=== PATIENT | female | born 1930 | race Caucasian/White ===

== ENCOUNTER 2017-01-01 07:05 | Day surgery (SDC) | payer OTHER ==
[2017-01-01] MEDS ORDERED: SODIUM CHLORIDE 250 ML IV ONE (08:00)
[2017-01-01] MEDS ORDERED: DIPHENHYDRAMINE 25 MG in SODIUM CHLORIDE 50 ML IVPB ONE (08:00)
[2017-01-01] MEDS ORDERED: ACETAMINOPHEN 325 MG TABLET (FP) PO ONE (08:00)
[2017-01-01] MEDS ORDERED: RITUXIMAB IVPB ONE (09:00)
[2017-01-01] MEDS ORDERED: SODIUM CHLORIDE IVPB ONE (09:00)
[2017-01-01 09:37] LABS: MCH 29.9 pg (25.7-33.7); MEAN PLT VOLUME 9.3 fl (7.5-11.1); RDW 14.5 % (11.6-15.6); WHITE BLOOD COUNT 9.5 K/mm3 (4.0-10.0)
[2017-01-01 09:38] VITALS: TEMP 98.1
[2017-01-01 13:07] LABS: PLATELET COMMENT2 FEW LARGE PLTS; PLATELET ESTIMATE ADEQUATE (NORMAL)
[2017-01-01] MEDS ORDERED: PORTA CATH FLUSH 10 ML IVPUSH ONE (19:14)
[2017-01-01 19:15] VITALS: BP 111/56; PULSE 74
[2017-01-02 10:55] LABS: PLATELET COUNT 145 K/MM3 (134-434)
== END 2017-01-01 16:15 | disposition home or self-care (01) ==
LOC: JONCCHEMO 07:05 → J7W 10:38 → JONCCHEMO 16:15
PROVIDERS: ATTEND Internal Medicine Hematology & Oncology
PROC: 3E04305 Introduction of Other Antineoplastic into Central Vein, Percutaneous Approach (ICD-10-PCS; principal; 2017-01-01)
PROC: 3E043GC Introduction of Other Therapeutic Substance into Central Vein, Percutaneous Approach (ICD-10-PCS; 2017-01-01)
PROC: 3E0437Z Introduction of Electrolytic and Water Balance Substance into Central Vein, Percutaneous Approach (ICD-10-PCS; 2017-01-01)
DX: Z51.11 Encounter for antineoplastic chemotherapy (principal); C91.10 Chronic lymphocytic leukemia of B-cell type not having achieved remission
CPT/HCPCS: 96375; 96413; J1200; J7030; J9310; 36415; 85025; 96360; 96361; 96367; 96415

== ENCOUNTER 2017-02-26 07:45 | Day surgery (SDC) | payer OTHER ==
[2017-02-26] MEDS ORDERED: ACETAMINOPHEN 325 MG TABLET (FP) PO ONE (10:00)
[2017-02-26] MEDS ORDERED: DIPHENHYDRAMINE 25 MG in SODIUM CHLORIDE 50 ML IVPB ONE (10:00)
[2017-02-26] MEDS ORDERED: SODIUM CHLORIDE 250 ML IV ONE (10:00)
[2017-02-26] MEDS ORDERED: SODIUM CHLORIDE IVPB ONE (10:30)
[2017-02-26] MEDS ORDERED: RITUXIMAB IVPB ONE (10:30)
[2017-02-26 10:31] LABS: MCH 29.4 pg (25.7-33.7); MCHC 33.3 g/dl (32.0-36.0); MEAN CELL VOLUME 88.5 fl (80-96); MEAN PLT VOLUME 9.6 fl (7.5-11.1); RDW 14.2 % (11.6-15.6); WHITE BLOOD COUNT 6.2 K/mm3 (4.0-10.0)
[2017-02-26 13:46] LABS: ALBUMIN 4.1 g/dl (3.4-5.0); ALK PHOS 77 U/L (45-117); ANION GAP 11 (8-16); BILIRUBIN,TOTAL 0.4 mg/dL (0.2-1.0); CALCIUM 9.5 mg/dL (8.5-10.1); CO2 24 mmol/L (21-32); COCKROFT - GAULT 60.35; CREATININE 0.7 mg/dL (0.55-1.02); GLUCOSE,RANDOM 76 mg/dL (74-106); MAGNESIUM 2.4 mg/dL (1.8-2.4); SGOT/AST 29 U/L (15-37); SGPT/ALT 31 U/L (12-78); TOT PROT 6.3 g/dl (6.4-8.2)
[2017-02-26] MEDS ORDERED: PORTA CATH FLUSH 10 ML IVPUSH ONE (13:47)
[2017-02-26 14:15] LABS: PLATELET COUNT 158 K/MM3 (134-434); PLATELET ESTIMATE ADEQUATE (NORMAL)
[2017-02-26 16:29] VITALS: BP 117/61; PULSE 69; TEMP 97.7
[2017-02-26 17:39] LABS: URIC ACID 2.4 mg/dL (2.6-7.2)
== END 2017-02-26 18:32 | disposition home or self-care (01) ==
LOC: JONCCHEMO 07:45 → J7W 11:44 → JONCCHEMO 18:32
PROVIDERS: ATTEND Internal Medicine Hematology & Oncology
DX: Z51.11 Encounter for antineoplastic chemotherapy (principal); C91.10 Chronic lymphocytic leukemia of B-cell type not having achieved remission
CPT/HCPCS: 36415; 80053; 83735; 84550; 85025; 96367; 96413; 96415; J9310

== ENCOUNTER 2017-04-23 07:31 | Day surgery (SDC) | payer OTHER ==
[2017-04-23] MEDS ORDERED: SODIUM CHLORIDE 250 ML IV ONE (08:00)
[2017-04-23] MEDS ORDERED: DIPHENHYDRAMINE 25 MG in SODIUM CHLORIDE 50 ML IVPB ONE (08:30)
[2017-04-23] MEDS ORDERED: ACETAMINOPHEN 325 MG TABLET (FP) PO ONE (08:30)
[2017-04-23] MEDS ORDERED: SODIUM CHLORIDE IVPB ONE ×2 (09:00)
[2017-04-23] MEDS ORDERED: RITUXIMAB IVPB ONE ×2 (09:00)
[2017-04-23 09:34] LABS: MCH 29.2 pg (25.7-33.7); MCHC 32.9 g/dl (32.0-36.0); MEAN CELL VOLUME 88.7 fl (80-96); MEAN PLT VOLUME 9.5 fl (7.5-11.1); PLATELET COUNT 165 K/MM3 (134-434); WHITE BLOOD COUNT 5.6 K/mm3 (4.0-10.0)
[2017-04-23 09:53] LABS: ALBUMIN 3.9 g/dl (3.4-5.0); ANION GAP 10 (8-16); CALCIUM 9.4 mg/dL (8.5-10.1); CO2 22 mmol/L (21-32); GLUCOSE,RANDOM 105 mg/dL (74-106)
[2017-04-23 09:56] LABS: ALK PHOS 81 U/L (45-117); BILIRUBIN,TOTAL 0.3 mg/dL (0.2-1.0); CREATININE 0.8 mg/dL (0.55-1.02); SGOT/AST 34 U/L (15-37); SGPT/ALT 32 U/L (12-78); TOT PROT 6.4 g/dl (6.4-8.2)
[2017-04-23 09:57] LABS: BILIRUBIN,DIRECT < 0.1 mg/dL (0.0-0.2)
[2017-04-23 10:18] LABS: PLATELET ESTIMATE ADEQUATE (NORMAL)
[2017-04-23 17:06] VITALS: BP 136/53; PULSE 64; TEMP 97.4
== END 2017-04-23 15:30 | disposition home or self-care (01) ==
LOC: JONCCHEMO 07:31 → J7W 10:26 → JONCCHEMO 15:30
PROVIDERS: ATTEND Internal Medicine Hematology & Oncology
DX: Z51.11 Encounter for antineoplastic chemotherapy (principal); C91.10 Chronic lymphocytic leukemia of B-cell type not having achieved remission
CPT/HCPCS: 36415; 80053; 80076; 85025; 96361; 96367; 96375; 96413; 96415; J9310

== ENCOUNTER 2017-06-18 07:36 | Day surgery (SDC) | payer OTHER ==
[2017-06-18] MEDS ORDERED: ACETAMINOPHEN 325 MG TABLET (FP) PO ONE (08:30)
[2017-06-18] MEDS ORDERED: DIPHENHYDRAMINE 25 MG in SODIUM CHLORIDE 50 ML IVPB ONE (08:30)
[2017-06-18] MEDS ORDERED: RITUXIMAB IVPB ONE (09:00)
[2017-06-18] MEDS ORDERED: SODIUM CHLORIDE IVPB ONE (09:00)
[2017-06-18 10:07] LABS: MCH 29.4 pg (25.7-33.7); MEAN CELL VOLUME 89.2 fl (80-96); MEAN PLT VOLUME 9.5 fl (7.5-11.1); PLATELET COUNT 205 K/MM3 (134-434); RDW 14.4 % (11.6-15.6); WHITE BLOOD COUNT 5.8 K/mm3 (4.0-10.0)
[2017-06-18 10:39] LABS: ALBUMIN 4.2 g/dl (3.4-5.0); ANION GAP 6 (8-16); BILIRUBIN,DIRECT < 0.1 mg/dL (0.0-0.2); BILIRUBIN,TOTAL 0.4 mg/dL (0.2-1.0); CALCIUM 10.1 mg/dL (8.5-10.1); CO2 29 mmol/L (21-32); CREATININE 0.7 mg/dL (0.55-1.02); GLUCOSE,RANDOM 75 mg/dL (74-106); MAGNESIUM 2.3 mg/dL (1.8-2.4); SGOT/AST 19 U/L (15-37); SGPT/ALT 23 U/L (12-78); TOT PROT 6.6 g/dl (6.4-8.2)
[2017-06-18 10:41] LABS: ALK PHOS 87 U/L (45-117)
[2017-06-18 11:14] LABS: LDH 286 U/L (84-246)
[2017-06-18 11:18] LABS: PHOSPHOROUS 3.5 mg/dL (2.5-4.9); URIC ACID 2.6 mg/dL (2.6-7.2)
[2017-06-18] MEDS: SODIUM CHLORIDE 250 ML IV ONE ×2 (11:34→14:22)
[2017-06-18 11:51] LABS: MYELOCYTE 1 % (0-2); TOTAL CELLS COUNTED 100
[2017-06-18 15:42] VITALS: BP 112/53; PULSE 63; TEMP 97.8
[2017-06-19 14:13] LABS: CALCIUM 9.7 mg/dL (8.7-10.3)
== END 2017-06-18 15:40 | disposition home or self-care (01) ==
LOC: JONCCHEMO 07:36 → J7W 10:52 → JONCCHEMO 15:40
PROVIDERS: ATTEND Internal Medicine Hematology & Oncology
DX: Z51.11 Encounter for antineoplastic chemotherapy (principal); C91.10 Chronic lymphocytic leukemia of B-cell type not having achieved remission
CPT/HCPCS: 36415; 80053; 80076; 82306; 82310; 82785; 83615; 83735; 83970; 84100; 84550; 85025; 85651; 96361; 96375; 96413; 96415; J9310

== ENCOUNTER 2019-01-06 07:07 | Day surgery (SDC) | payer OTHER ==
[2019-01-06] MEDS ORDERED: SODIUM CHLORIDE 250 ML IV ONE ×2 (08:00→12:00)
[2019-01-06] MEDS ORDERED: ACETAMINOPHEN 325 MG TABLET (FP) PO ONE (08:30)
[2019-01-06] MEDS ORDERED: DIPHENHYDRAMINE 50 MG in SODIUM CHLORIDE 50 ML IVPB ONE (08:30)
[2019-01-06] MEDS ORDERED: [UNRECOGNIZED DRUG - OTHER] IVPB ONE (09:00)
[2019-01-06 10:03] LABS: BASO % 0.4 % (0-2.0); HEMATOCRIT 40.5 % (32.4-45.2); HEMOGLOBIN 13.6 GM/dL (10.7-15.3); LYMPH % 20.6 % (8-40); MCHC 33.7 g/dl (32.0-36.0); MEAN CELL VOLUME 86.2 fl (80-96); MEAN PLT VOLUME 9.1 fl (7.5-11.1); MONO % 9.1 % (3.8-10.2); NEUT % 67.9 % (42.8-82.8); PLATELET COUNT 201 K/MM3 (134-434); RDW 13.9 % (11.6-15.6)
[2019-01-06 10:33] LABS: ANION GAP 8 MMOL/L (8-16); BLOOD UREA NITROGEN 13 mg/dL (7-18); CALCIUM 9.2 mg/dL (8.5-10.1); CHLORIDE 109 mmol/L (98-107); CO2 25 mmol/L (21-32); CREATININE 0.7 mg/dL (0.55-1.3); GLUCOSE,RANDOM 88 mg/dL (74-106); LDH 194 U/L (84-246); MAGNESIUM 2.4 mg/dL (1.8-2.4); SODIUM 142 mmol/L (136-145); URIC ACID 5.2 mg/dL (2.6-7.2)
[2019-01-06] MEDS ORDERED: IMMUN GLOB G(IGG)/PRO/IGA 0-50 200 ML, IMMUN GLOB G(IGG)/PRO/IGA 0-50 50 ML IVPB ONE (12:27)
[2019-01-06 16:49] VITALS: BP 132/78; PULSE 78; TEMP 97.2
== END 2019-01-06 16:37 | disposition home or self-care (01) ==
LOC: JONCCHEMO 07:07 → J7W 14:16 → JONCCHEMO 16:37
PROVIDERS: ATTEND Internal Medicine Hematology & Oncology
DX: Z53.8 Procedure and treatment not carried out for other reasons (principal)
CPT/HCPCS: 36415; 71045-TC-FY; 80048; 80053; 82962; 83615; 83735; 84443; 84484; 84550; 85025; 93005; 93010; 99283-25

== ENCOUNTER 2019-01-06 09:27 | Emergency (ER) | payer OTHER ==
[2019-01-06 09:37] VITALS: TEMP 98.2; BMI 26.5
--- NOTE | 2019-01-06 09:44 | PDOC ---
History of Present Illness - General Chief Complaint: Syncope/Near Syncope Stated Complaint: SYNCOPE Time Seen by Provider: 01/06/19 09:44 History Source: Patient Exam Limitations: No Limitations - History of Present Illness Initial Comments: 01/06/19 10:02 88 year old female with PMH CLL, hypothyroidism presented to ED for syncope. Pt was in [facility] getting lab work performed when she felt lightheaded and passed out for <1 minute, witnessed by [facility] staff. Pt denied chest pain, shortness of breath , abdominal pain, nausea, vomiting, weakness, numbness, tingling. She stated she feels back to her baseline. Pt stated she has a history of passing out with lab work or any injection. Past History - Past Medical History Allergies/Adverse Reactions: Allergies Allergy/AdvReac Type Severity Reaction Status Date / Time No Known Allergies Allergy Unverified 01/06/19 09:37 Home Medications: Ambulatory Orders Levothyroxine Sodium [Unithroid] 50 mcg PO DAILY 05/04/15 Anemia: No Asthma: No Cancer: Yes (CLL; LEFT BREAST CANCER) Cardiac Disorders: No CVA: No COPD: No CHF: No Dementia: No Diabetes: No GI Disorders: No Disorders: No HTN: No Hypercholesterolemia: No Liver Disease: No Seizures: No Thyroid Disease: Yes (HYPOTHYROID) - Surgical History Appendectomy: No Cholecystectomy: Yes (1978) Neurologic Surgery: No - Suicide/Smoking/Psychosocial Hx Smoking History: Current every day smoker Have you smoked in the past 12 months: No Information on smoking cessation initiated: No Hx Alcohol Use: No Drug/Substance Use Hx: No Substance Use Type: None Hx Substance Use Treatment: No Review of Systems - Review of Systems Able to Perform ROS?: Yes Comments:: 01/06/19 10:04 General: denied fever, chills, generalized weakness. HEENT: denied sore throat, rhinorrhea, ear pain. Heart: admitted to syncope. denied chest pain, palpitations, syncope, diaphoresis. Respiratory: denied shortness of breath, cough, sputum production, hemoptysis. Abdomen: denied abdominal pain, nausea, vomiting, diarrhea, constipation, blood in stool. : denied dysuria, increased urinary frequency, hematuria, urinary incontinence , flank pain. Back: denied back pain. Musculoskeletal: denied joint pain, muscle pain, joint swelling. Neurological: denied headache, dizziness, numbness, tingling, weakness. Skin: denied rash, laceration, abrasion. *Physical Exam - Vital Signs Last Vital Signs Temp Pulse Resp BP Pulse Ox 98.2 F 88 16 126/66 100 01/06/19 09:30 01/06/19 09:30 01/06/19 09:30 01/06/19 09:30 01/06/19 09:30 - Physical Exam Comments: 01/06/19 10:05 Constitutional: Well-nourished, Well-developed, appearing stated age. HEENT: head is normocephalic, atraumatic. EOMI. PERRLA. Neck: supple. Full ROM. Heart: regular rhythm. no murmurs, rubs or gallops. Lungs: clear to auscultation bilaterally. no crackles, rhonchi or wheezing. no stridor. Abdomen: soft, nontender. normal bowel sounds. no rebound, guarding, masses. Extremities: peripheral pulses intact. no lower extremity edema. Neurological: CN 2-12 grossly intact. moves all four extremities. Psych: awake, alert, oriented x3. follows commands. answers questions appropriately. ED Treatment Course - LABORATORY CBC & Chemistry Diagram: 01/06/19 09:40 01/06/19 09:40 - ADDITIONAL ORDERS Additional order review: Laboratory Results 01/06/19 09:32 POC Glucometer 83 01/06/19 09:32 POC Glucometer 83 Medical Decision Making - Medical Decision Making 01/06/19 10:05 88 year old female with above PMH presented to ED for syncopal episode witnessed in [facility]. Initial Vital Signs Temp Pulse Resp BP Pulse Ox 98.2 F 88 16 126/66 100 01/06/19 09:30 01/06/19 09:30 01/06/19 09:30 01/06/19 09:30 01/06/19 09:30 Afebrile. No tachycardia. No tachypnea. No hypotension. No hypoxia on room air. EKG performed at 0938: rate 65, regular rhythm, normal axis, normal intervals, no acute ST changes. Labs ordered: CBC, CMP, TSH, Troponin Imaging ordered: none Medications ordered: none 01/06/19 11:17 CBC WBC 5.6 K/mm3 (4.0-10.0) 01/06/19 09:40 RBC 4.41 M/mm3 (3.60-5.2) 01/06/19 09:40 Hgb 12.8 GM/dL (10.7-15.3) 01/06/19 09:40 Hct 37.8 % (32.4-45.2) 01/06/19 09:40 MCV 85.7 fl (80-96) 01/06/19 09:40 MCH 29.1 pg (25.7-33.7) 01/06/19 09:40 MCHC 34.0 g/dl (32.0-36.0) 01/06/19 09:40 RDW 13.8 % (11.6-15.6) 01/06/19 09:40 Plt Count 193 K/MM3 (134-434) 01/06/19 09:40 MPV 9.1 fl (7.5-11.1) 01/06/19 09:40 Absolute Neuts (auto) 3.5 K/mm3 (1.5-8.0) 01/06/19 09:40 Neutrophils % 63.6 % (42.8-82.8) 01/06/19 09:40 Lymphocytes % 24.6 % (8-40) 01/06/19 09:40 Monocytes % 9.0 % (3.8-10.2) 01/06/19 09:40 Eosinophils % 1.9 % (0-4.5) 01/06/19 09:40 Basophils % 0.9 % (0-2.0) 01/06/19 09:40 Nucleated RBC % 0 % (0-0) 01/06/19 09:40 No leukocytosis. No anemia. CMP Sodium 139 mmol/L (136-145) 01/06/19 09:40 Potassium 4.0 mmol/L (3.5-5.1) 01/06/19 09:40 Chloride 108 mmol/L (98-107) H 01/06/19 09:40 Carbon Dioxide 25 mmol/L (21-32) 01/06/19 09:40 Anion Gap 5 MMOL/L (8-16) L 01/06/19 09:40 BUN 13 mg/dL (7-18) 01/06/19 09:40 Creatinine 0.7 mg/dL (0.55-1.3) 01/06/19 09:40 Creat Clearance w eGFR 79.15 (>60) 01/06/19 09:40 POC Glucometer 83 UNITS (80-120) 01/06/19 09:32 Random Glucose 84 mg/dL (74-106) 01/06/19 09:40 Calcium 9.0 mg/dL (8.5-10.1) 01/06/19 09:40 Total Bilirubin 0.4 mg/dL (0.2-1) 01/06/19 09:40 AST 18 U/L (15-37) 01/06/19 09:40 ALT 29 U/L (13-61) 01/06/19 09:40 Alkaline Phosphatase 76 U/L (45-117) 01/06/19 09:40 Troponin I < 0.02 ng/ml (0.00-0.05) 01/06/19 09:40 Total Protein 5.9 g/dl (6.4-8.2) L 01/06/19 09:40 Albumin 3.6 g/dl (3.4-5.0) 01/06/19 09:40 TSH 6.26 uIU/ml (0.358-3.74) H 01/06/19 09:40 No electrolyte abnormalities. No RENETTA. No transaminitis. Mildly elevated TSH. -Hx hypothyroidism CXR: no infiltrate, sharp costophrenic angles, no large mediastinum, no cardiomegaly. -Pending official report Pt reported she is feeling well, no subsequent syncopal episode/chest pain/ palpitations/shortness of breath. Pt discharged. *DC/Admit/Observation/Transfer Diagnosis at time of Disposition: Syncopal episodes - Discharge Dispostion Disposition: HOME Condition at time of disposition: Stable Decision to Admit order: No - Referrals Referrals: Sarabjit Paez MD [Primary Care Provider] - - Patient Instructions Additional Instructions: You were seen today for passing out. Your lab work was normal. Your EKG was normal. Your chest X-ray was normal. [facility]. Follow up with your primary care doctor in 1-2 days. Bring all paperwork to your appointment. Return to the Emergency Department for passing out, lightheadedness like you may pass out, palpitations, chest pain, shortness of breath, or any other new, worsening or concerning symptoms. - Post Discharge Activity
--- NOTE | 2019-01-06 10:02 | PDOC ---
Attending Attestation - Resident Resident Name: Pilar Lehman - ED Attending Attestation I have performed the following: I have examined & evaluated the patient, The case was reviewed & discussed with the resident, I agree w/resident's findings & plan, Exceptions are as noted - HPI HPI: 88 yo F history CLL sent from Dr. Bernard's office. She had a scheduled appointment to receive gamma globulin today, and they had difficulty getting IV access (her veins are difficult at times). She has history of syncope in the past when she required multiple needlesticks to obtain access, which is what happened this morning. She denies cp, SOB, leg swelling. No preceding symptoms. Denies complaints at present. - Physicial Exam PE: GENERAL: Awake, alert, and fully oriented, in no acute distress HEAD: No signs of trauma EYES: PERRLA, EOMI, sclera anicteric, conjunctiva clear ENT: Auricles normal inspection, hearing grossly normal, nares patent, oropharynx clear without exudates. Moist mucosa NECK: Normal ROM, supple, no lymphadenopathy, JVD, or masses LUNGS: Breath sounds equal, clear to auscultation bilaterally. No wheezes, and no crackles HEART: Regular rate and rhythm, normal S1 and S2, no murmurs, rubs or gallops ABDOMEN: Soft, nontender, normoactive bowel sounds. No guarding, no rebound. No masses EXTREMITIES: Normal range of motion, no edema. No clubbing or cyanosis. No cords, erythema, or tenderness NEUROLOGICAL: Cranial nerves II through XII grossly intact. Normal speech, normal gait. Motor and sensation intact SKIN: Warm, Dry, normal turgor, no rashes or lesions noted. - Medical Decision Making 01/06/19 11:31 D/w Dr. Bernard. Cardiac workup wnl. We can discharge patient and send back to [facility] to complete her treatment. We will leave her IV in place so that they can use it. Stable for DC home.
[2019-01-06 10:08] LABS: BASO % 0.9 % (0-2.0); EOS % 1.9 % (0-4.5); HEMATOCRIT 37.8 % (32.4-45.2); HEMOGLOBIN 12.8 GM/dL (10.7-15.3); LYMPH % 24.6 % (8-40); MCH 29.1 pg (25.7-33.7); MEAN CELL VOLUME 85.7 fl (80-96); MEAN PLT VOLUME 9.1 fl (7.5-11.1); NEUT % 63.6 % (42.8-82.8); PLATELET COUNT 193 K/MM3 (134-434); RBC 4.41 M/mm3 (3.60-5.2); RDW 13.8 % (11.6-15.6); WHITE BLOOD COUNT 5.6 K/mm3 (4.0-10.0)
[2019-01-06 10:36] LABS: ALBUMIN 3.6 g/dl (3.4-5.0); ALK PHOS 76 U/L (45-117); ANION GAP 5 MMOL/L (8-16); BILIRUBIN,TOTAL 0.4 mg/dL (0.2-1); BLOOD UREA NITROGEN 13 mg/dL (7-18); CHLORIDE 108 mmol/L (98-107); CO2 25 mmol/L (21-32); CREATININE 0.7 mg/dL (0.55-1.3); GLUCOSE,RANDOM 84 mg/dL (74-106); SGOT/AST 18 U/L (15-37); SGPT/ALT 29 U/L (13-61); SODIUM 139 mmol/L (136-145); TOT PROT 5.9 g/dl (6.4-8.2)
[2019-01-06 11:32] VITALS: BP 132/53; PULSE 62
--- NOTE | 2019-01-06 12:27 | EKG ---
Test Reason : Blood Pressure : / mmHG Vent. Rate : 065 BPM Atrial Rate : 065 BPM P-R Int : 176 ms QRS Dur : 088 ms QT Int : 424 ms P-R-T Axes : 065 013 031 degrees QTc Int : 440 ms NORMAL SINUS RHYTHM SEPTAL INFARCT , AGE UNDETERMINED ABNORMAL ECG NO PREVIOUS ECGS AVAILABLE Confirmed by KESHA GARCIA MD ([id number]) on 01/06/2019 12:26:48 PM Referred By: Confirmed By:KESHA GARCIA MD
== END 2019-01-06 11:59 | disposition home or self-care (01) ==
LOC: JER 09:27
DX: R55 Syncope and collapse (principal); Z85.6 Personal history of leukemia; Z85.3 Personal history of malignant neoplasm of breast; F17.210 Nicotine dependence, cigarettes, uncomplicated
CPT/HCPCS: 36415; 71045-TC-FY; 80053; 82962; 84443; 84484; 85025; 93005; 93010; 99283-25

== ENCOUNTER 2019-03-03 07:16 | Day surgery (SDC) | payer OTHER ==
[2019-03-03] MEDS ORDERED: SODIUM CHLORIDE 250 ML IV ONE ×2 (09:00→13:00)
[2019-03-03] MEDS ORDERED: ACETAMINOPHEN 325 MG TABLET (FP) PO ONE (09:30)
[2019-03-03] MEDS ORDERED: DIPHENHYDRAMINE 50 MG in SODIUM CHLORIDE 50 ML IVPB ONE (09:30)
[2019-03-03] MEDS ORDERED: IMMUNE GLOB GAM CAPRYLATE IVPB ONE (10:00)
[2019-03-03 12:54] LABS: BASO % 0.7 % (0-2.0); EOS % 2.2 % (0-4.5); HEMATOCRIT 38.5 % (32.4-45.2); MCH 29.2 pg (25.7-33.7); MCHC 33.7 g/dl (32.0-36.0); MEAN CELL VOLUME 86.7 fl (80-96); MEAN PLT VOLUME 9.8 fl (7.5-11.1); MONO % 8.1 % (3.8-10.2); PLATELET COUNT 169 K/MM3 (134-434); RBC 4.44 M/mm3 (3.60-5.2); RDW 13.7 % (11.6-15.6); WHITE BLOOD COUNT 5.5 K/mm3 (4.0-10.0)
[2019-03-03 13:35] LABS: ALBUMIN 4.2 g/dl (3.4-5.0); BILIRUBIN,DIRECT 0.1 mg/dL (0.0-0.2); BILIRUBIN,TOTAL 0.4 mg/dL (0.2-1); BLOOD UREA NITROGEN 11.7 mg/dL (7-18); CALCIUM 9.2 mg/dL (8.5-10.1); CREATININE 0.6 mg/dL (0.55-1.3); MAGNESIUM 2.3 mg/dL (1.8-2.4); POTASSIUM 4.3 mmol/L (3.5-5.1); TOT PROT 6.6 g/dl (6.4-8.2); URIC ACID 4.8 mg/dL (2.6-7.2)
[2019-03-03 17:46] VITALS: BP 122/54; PULSE 75; TEMP 98.4
== END 2019-03-03 18:52 | disposition home or self-care (01) ==
LOC: JONCCHEMO 07:16 → J7W 10:50 → JONCCHEMO 18:52
PROVIDERS: ATTEND Internal Medicine Hematology & Oncology
PROC: 3E033GC Introduction of Other Therapeutic Substance into Peripheral Vein, Percutaneous Approach (ICD-10-PCS; principal; 2019-03-03)
PROC: 3E033GC Introduction of Other Therapeutic Substance into Peripheral Vein, Percutaneous Approach (ICD-10-PCS; 2019-03-03)
DX: D80.1 Nonfamilial hypogammaglobulinemia (principal); C91.10 Chronic lymphocytic leukemia of B-cell type not having achieved remission
CPT/HCPCS: 36415; 80048; 80076; 82232; 82784; 83615; 83735; 84550; 85025; 96360; 96361; 96365; 96366; 96367; 96375; 96415; 96417; J1561

== ENCOUNTER 2019-04-02 08:21 | Day surgery (SDC) | payer OTHER, MEDICARE ==
[2019-04-01 18:03] VITALS: BMI 28.3
[2019-04-02] MEDS ORDERED: PORTA CATH FLUSH 10 ML IVPUSH PRN (09:23)
[2019-04-02 09:26] LABS: BASO % 0.6 % (0-2.0); EOS % 2.7 % (0-4.5); HEMATOCRIT 39.4 % (32.4-45.2); HEMOGLOBIN 13.3 GM/dL (10.7-15.3); LYMPH % 22.1 % (8-40); MCHC 33.7 g/dl (32.0-36.0); MEAN CELL VOLUME 86.2 fl (80-96); MEAN PLT VOLUME 9.2 fl (7.5-11.1); MONO % 8.1 % (3.8-10.2); NEUT % 66.5 % (42.8-82.8); PLATELET COUNT 174 K/MM3 (134-434); RBC 4.57 M/mm3 (3.60-5.2); WHITE BLOOD COUNT 5.2 K/mm3 (4.0-10.0)
[2019-04-02 09:50] LABS: INR 0.91 (0.83-1.09); PROTHROMBIN TIME (PATIENT) 10.7 SEC (9.7-13.0)
[2019-04-02 15:15] VITALS: BP 132/60; PULSE 72; TEMP 97.8
== END 2019-04-02 13:45 | disposition home or self-care (01) ==
LOC: JRADIR 08:21
PROVIDERS: ATTEND Internal Medicine Hematology & Oncology
PROC: 0JH63WZ Insertion of Totally Implantable Vascular Access Device into Chest Subcutaneous Tissue and Fascia, Percutaneous Approach (ICD-10-PCS; principal; 2019-04-02)
PROC: 05HM33Z Insertion of Infusion Device into Right Internal Jugular Vein, Percutaneous Approach (ICD-10-PCS; 2019-04-02)
PROC: B513ZZA Fluoroscopy of Right Jugular Veins, Guidance (ICD-10-PCS; 2019-04-02)
DX: C91.10 Chronic lymphocytic leukemia of B-cell type not having achieved remission (principal)
CPT/HCPCS: 36561; C1788; 36415; 77001-TC-FY; 85025; 85610

== ENCOUNTER 2019-04-03 05:57 | Day surgery (SDC) | payer OTHER, MEDICARE ==
[~2019-04-03 05:57] MED LIST: GLY IVPB ONE; IGA OV50 IVPB ONE; IMMUN GLOB IVPB ONE
[2019-04-03] MEDS ORDERED: SODIUM CHLORIDE 250 ML IV ONE ×2 (09:30→14:00)
[2019-04-03] MEDS ORDERED: DIPHENHYDRAMINE 50 MG in SODIUM CHLORIDE 50 ML IVPB ONE (10:00)
[2019-04-03] MEDS ORDERED: ACETAMINOPHEN 325 MG TABLET (FP) PO ONE (10:00)
[2019-04-03] MEDS ORDERED: IGA OV50 IVPB ONE (10:30)
[2019-04-03] MEDS ORDERED: IMMUN GLOB IVPB ONE (10:30)
[2019-04-03] MEDS ORDERED: GLY IVPB ONE (10:30)
[2019-04-03] MEDS ORDERED: [UNRECOGNIZED DRUG - OTHER] IVPB ONE (10:30)
[2019-04-03 11:02] LABS: BASO % 0.3 % (0-2.0); EOS % 1.8 % (0-4.5); HEMATOCRIT 37.5 % (32.4-45.2); HEMOGLOBIN 12.6 GM/dL (10.7-15.3); LYMPH % 22.7 % (8-40); MCH 29.1 pg (25.7-33.7); MCHC 33.6 g/dl (32.0-36.0); MEAN CELL VOLUME 86.6 fl (80-96); MEAN PLT VOLUME 8.8 fl (7.5-11.1); MONO % 8.3 % (3.8-10.2); NEUT % 66.9 % (42.8-82.8); RBC 4.33 M/mm3 (3.60-5.2); RDW 13.5 % (11.6-15.6); WHITE BLOOD COUNT 6.3 K/mm3 (4.0-10.0)
[2019-04-03 11:22] LABS: PLATELET COUNT 168 K/MM3 (134-434)
[2019-04-03 11:33] LABS: ALBUMIN 3.8 g/dl (3.4-5.0); BILIRUBIN,DIRECT 0.1 mg/dL (0.0-0.2); BILIRUBIN,TOTAL 0.5 mg/dL (0.2-1); BLOOD UREA NITROGEN 9.8 mg/dL (7-18); CALCIUM 9.2 mg/dL (8.5-10.1); CREATININE 0.7 mg/dL (0.55-1.3); MAGNESIUM 2.2 mg/dL (1.8-2.4); TOT PROT 6.3 g/dl (6.4-8.2); URIC ACID 4.4 mg/dL (2.6-7.2)
[2019-04-03 16:04] VITALS: TEMP 97.8
[2019-04-03] MEDS ORDERED: PORTA CATH FLUSH 10 ML IVPUSH ONE (16:04)
[2019-04-03 16:07] VITALS: BP 141/54; PULSE 57
[2019-04-04 03:10] LABS: HEPATITIS B CORE ANTIBODY,IGM Negative (Negative)
[2019-04-04 16:07] LABS: BETA-2-MICROGLOBULIN 1.5 mg/L (0.6-2.4)
== END 2019-04-03 14:15 | disposition home or self-care (01) ==
LOC: JONCCHEMO 05:57 → J7W 10:26 → JONCCHEMO 14:15
PROVIDERS: ATTEND Internal Medicine Hematology & Oncology
PROC: 3E043GC Introduction of Other Therapeutic Substance into Central Vein, Percutaneous Approach (ICD-10-PCS; principal; 2019-04-03)
DX: C91.10 Chronic lymphocytic leukemia of B-cell type not having achieved remission (principal); D80.1 Nonfamilial hypogammaglobulinemia; Z76.89 Persons encountering health services in other specified circumstances
CPT/HCPCS: 36415; 80048; 80076; 82232; 82784; 83615; 83735; 84550; 85025; 86705; 86803; 87340; 96365; 96366; 96375; 96415; 96417; J1569

== ENCOUNTER 2019-05-06 07:19 | Day surgery (SDC) | payer OTHER, MEDICARE | END 2019-05-06 16:30 | disposition home or self-care (01) | LOC: JONCCHEMO 07:19 → J7W 10:54 → JONCCHEMO 16:30 ==

== ENCOUNTER 2019-06-02 05:50 | Day surgery (SDC) | payer OTHER, MEDICARE ==
[2019-06-02] MEDS ORDERED: SODIUM CHLORIDE 250 ML IV ONE ×2 (09:30→14:00)
[2019-06-02] MEDS ORDERED: ACETAMINOPHEN 325 MG TABLET (FP) PO ONE (10:00)
[2019-06-02] MEDS ORDERED: DIPHENHYDRAMINE 50 MG in SODIUM CHLORIDE 50 ML IVPB ONE (10:00)
[2019-06-02] MEDS ORDERED: [UNRECOGNIZED DRUG - OTHER] IVPB ONE (10:30)
[2019-06-02] MEDS ORDERED: IMMUNE GLOBULIN IVPB ONE (10:30)
[2019-06-02 13:46] LABS: BASO % 0.5 % (0-2.0); EOS % 1.9 % (0-4.5); HEMATOCRIT 38.7 % (32.4-45.2); LYMPH % 29.6 % (8-40); MCH 29.1 pg (25.7-33.7); MCHC 33.6 g/dl (32.0-36.0); MEAN CELL VOLUME 86.8 fl (80-96); MEAN PLT VOLUME 9.5 fl (7.5-11.1); MONO % 7.8 % (3.8-10.2); NEUT % 60.2 % (42.8-82.8); PLATELET COUNT 196 K/MM3 (134-434); RBC 4.46 M/mm3 (3.60-5.2); RDW 13.1 % (11.6-15.6); WHITE BLOOD COUNT 5.7 K/mm3 (4.0-10.0)
[2019-06-02 14:14] LABS: ALBUMIN 3.9 g/dl (3.4-5.0); BILIRUBIN,TOTAL 0.3 mg/dL (0.2-1); BLOOD UREA NITROGEN 13.8 mg/dL (7-18); CALCIUM 9.6 mg/dL (8.5-10.1); CREATININE 0.7 mg/dL (0.55-1.3); MAGNESIUM 2.4 mg/dL (1.8-2.4); POTASSIUM 4.1 mmol/L (3.5-5.1); TOT PROT 6.8 g/dl (6.4-8.2); URIC ACID 4.5 mg/dL (2.6-7.2)
[2019-06-02 18:25] VITALS: BP 153/71; PULSE 75; TEMP 97.8
[2019-06-02] MEDS ORDERED: PORTA CATH FLUSH 10 ML IVPUSH ONE (18:47)
[2019-06-03 06:07] LABS: IGA IMMUNOGLOBULIN 22 mg/dL (64-422); IGG QN IMMUNOGLOBULIN 877 mg/dL (700-1600); IGM QN SERUM <5 mg/dL (26-217)
[2019-06-03 17:08] LABS: BETA-2-MICROGLOBULIN 1.5 mg/L (0.6-2.4)
== END 2019-06-02 17:55 | disposition home or self-care (01) ==
LOC: JONCCHEMO 05:50 → J7W 12:38 → JONCCHEMO 17:55
PROVIDERS: ATTEND Internal Medicine Hematology & Oncology
PROC: 3E043GC Introduction of Other Therapeutic Substance into Central Vein, Percutaneous Approach (ICD-10-PCS; principal; 2019-06-02)
PROC: 3E043GC Introduction of Other Therapeutic Substance into Central Vein, Percutaneous Approach (ICD-10-PCS; 2019-06-02)
DX: C91.10 Chronic lymphocytic leukemia of B-cell type not having achieved remission (principal); C79.51 Secondary malignant neoplasm of bone; Z76.89 Persons encountering health services in other specified circumstances
CPT/HCPCS: 36415; 80053; 82232; 82784; 83615; 83735; 84550; 85025; 96375; 96415; 96417; J1459

== ENCOUNTER 2019-06-30 07:22 | Day surgery (SDC) | payer OTHER, MEDICARE ==
[2019-06-30] MEDS ORDERED: SODIUM CHLORIDE 250 ML IV ONE ×2 (09:00→13:00)
[2019-06-30] MEDS ORDERED: ACETAMINOPHEN 325 MG TABLET (FP) PO ONE ×2 (09:30→13:45)
[2019-06-30] MEDS ORDERED: DIPHENHYDRAMINE 50 MG in SODIUM CHLORIDE 50 ML IVPB ONE (09:30)
[2019-06-30] MEDS ORDERED: IMMUNE GLOBULIN IVPB ONE (10:00)
[2019-06-30] MEDS ORDERED: [UNRECOGNIZED DRUG - OTHER] IVPB ONE (10:00)
[2019-06-30 14:16] LABS: BASO % 0.5 % (0-2.0); EOS % 1.6 % (0-4.5); HEMATOCRIT 37.8 % (32.4-45.2); HEMOGLOBIN 12.4 GM/dL (10.7-15.3); LYMPH % 30.5 % (8-40); MCH 28.7 pg (25.7-33.7); MCHC 32.8 g/dl (32.0-36.0); MEAN CELL VOLUME 87.5 fl (80-96); MEAN PLT VOLUME 9.3 fl (7.5-11.1); MONO % 7.5 % (3.8-10.2); NEUT % 59.9 % (42.8-82.8); PLATELET COUNT 170 K/MM3 (134-434); RBC 4.31 M/mm3 (3.60-5.2); RDW 13.2 % (11.6-15.6); WHITE BLOOD COUNT 4.8 K/mm3 (4.0-10.0)
[2019-06-30 14:53] LABS: ALBUMIN 3.6 g/dl (3.4-5.0); BILIRUBIN,TOTAL 0.4 mg/dL (0.2-1); CALCIUM 8.9 mg/dL (8.5-10.1); CREATININE 0.7 mg/dL (0.55-1.3); MAGNESIUM 1.9 mg/dL (1.8-2.4); POTASSIUM 3.7 mmol/L (3.5-5.1); TOT PROT 6.2 g/dl (6.4-8.2); URIC ACID 4.3 mg/dL (2.6-7.2)
[2019-06-30] MEDS ORDERED: amLODIPine BESYLATE 5 MG TABLET (FP) PO ONE (16:00)
[2019-06-30 18:16] VITALS: BP 126/59; PULSE 61; TEMP 97.7
[2019-06-30] MEDS ORDERED: PORTA CATH FLUSH 10 ML IVPUSH ONE (18:16)
== END 2019-06-30 18:22 | disposition home or self-care (01) ==
LOC: JONCCHEMO 07:22 → J7W 13:15 → JONCCHEMO 18:22
PROVIDERS: ATTEND Internal Medicine Hematology & Oncology
PROC: 3E043GC Introduction of Other Therapeutic Substance into Central Vein, Percutaneous Approach (ICD-10-PCS; principal; 2019-06-30)
DX: C91.10 Chronic lymphocytic leukemia of B-cell type not having achieved remission (principal); C79.51 Secondary malignant neoplasm of bone; Z76.89 Persons encountering health services in other specified circumstances
CPT/HCPCS: 36415; 80053; 82232; 82784; 83615; 83735; 84550; 85025; 96365; 96366; J1459

== ENCOUNTER 2019-07-28 06:24 | Day surgery (SDC) | payer OTHER, MEDICARE ==
[2019-07-28] MEDS ORDERED: SODIUM CHLORIDE 250 ML IV ONE ×2 (10:00→14:00)
[2019-07-28] MEDS ORDERED: ACETAMINOPHEN 325 MG TABLET (FP) PO ONE (10:00)
[2019-07-28] MEDS ORDERED: DIPHENHYDRAMINE 50 MG in SODIUM CHLORIDE 50 ML IVPB ONE (10:00)
[2019-07-28] MEDS ORDERED: [UNRECOGNIZED DRUG - OTHER] IVPB ONE (10:30)
[2019-07-28] MEDS ORDERED: IMMUNE GLOBULIN IVPB ONE (10:30)
[2019-07-28 13:10] LABS: BASO % 0.8 % (0-2.0); EOS % 1.8 % (0-4.5); HEMATOCRIT 38.1 % (32.4-45.2); HEMOGLOBIN 12.8 GM/dL (10.7-15.3); LYMPH % 29.1 % (8-40); MCH 29.1 pg (25.7-33.7); MCHC 33.7 g/dl (32.0-36.0); MEAN CELL VOLUME 86.4 fl (80-96); MONO % 7.4 % (3.8-10.2); NEUT % 60.9 % (42.8-82.8); PLATELET COUNT 199 K/MM3 (134-434); RBC 4.41 M/mm3 (3.60-5.2); RDW 13.3 % (11.6-15.6); WHITE BLOOD COUNT 5.9 K/mm3 (4.0-10.0)
[2019-07-28 13:43] LABS: ALBUMIN 3.7 g/dl (3.4-5.0); BILIRUBIN,TOTAL 0.4 mg/dL (0.2-1); BLOOD UREA NITROGEN 12.3 mg/dL (7-18); CALCIUM 9.2 mg/dL (8.5-10.1); CREATININE 0.7 mg/dL (0.55-1.3); MAGNESIUM 2.2 mg/dL (1.8-2.4); POTASSIUM 3.9 mmol/L (3.5-5.1); TOT PROT 6.6 g/dl (6.4-8.2)
[2019-07-28 18:35] VITALS: BP 137/71; PULSE 62
[2019-07-28] MEDS ORDERED: PORTA CATH FLUSH 10 ML IVPUSH ONE (18:35)
[2019-07-28 18:41] VITALS: TEMP 97.8
== END 2019-07-28 16:55 | disposition home or self-care (01) ==
LOC: JONCCHEMO 06:24 → J7W 12:35 → JONCCHEMO 16:55
PROVIDERS: ATTEND Internal Medicine Hematology & Oncology
PROC: 3E043GC Introduction of Other Therapeutic Substance into Central Vein, Percutaneous Approach (ICD-10-PCS; principal; 2019-07-28)
DX: C91.10 Chronic lymphocytic leukemia of B-cell type not having achieved remission (principal); C79.51 Secondary malignant neoplasm of bone; Z76.89 Persons encountering health services in other specified circumstances
CPT/HCPCS: 36415; 80053; 83735; 85025; 96365; 96366; 96375; J1459

== ENCOUNTER 2019-08-25 05:38 | Day surgery (SDC) | payer OTHER, MEDICARE ==
[2019-08-25] MEDS ORDERED: SODIUM CHLORIDE 250 ML IV ONE ×2 (09:00→14:00)
[2019-08-25] MEDS ORDERED: DIPHENHYDRAMINE 50 MG in SODIUM CHLORIDE 50 ML IVPB ONE (09:30)
[2019-08-25] MEDS ORDERED: ACETAMINOPHEN 325 MG TABLET (FP) PO ONE (09:30)
[2019-08-25] MEDS ORDERED: [UNRECOGNIZED DRUG - OTHER] IVPB ONE (10:00)
[2019-08-25] MEDS ORDERED: IMMUNE GLOBULIN IVPB ONE (10:00)
[2019-08-25 11:47] LABS: BASO % 0.7 % (0-2.0); EOS % 2.3 % (0-4.5); HEMATOCRIT 39.1 % (32.4-45.2); HEMOGLOBIN 12.9 GM/dL (10.7-15.3); LYMPH % 26.5 % (8-40); MCH 28.4 pg (25.7-33.7); MCHC 33.1 g/dl (32.0-36.0); MEAN PLT VOLUME 9.2 fl (7.5-11.1); MONO % 7.7 % (3.8-10.2); NEUT % 62.8 % (42.8-82.8); PLATELET COUNT 179 K/MM3 (134-434); RBC 4.55 M/mm3 (3.60-5.2); RDW 13.4 % (11.6-15.6); WHITE BLOOD COUNT 6.2 K/mm3 (4.0-10.0)
[2019-08-25 12:19] LABS: ALBUMIN 3.7 g/dl (3.4-5.0); BILIRUBIN,TOTAL 0.4 mg/dL (0.2-1); BLOOD UREA NITROGEN 13.9 mg/dL (7-18); CALCIUM 9.4 mg/dL (8.5-10.1); CREATININE 0.6 mg/dL (0.55-1.3); MAGNESIUM 2.3 mg/dL (1.8-2.4); TOT PROT 6.7 g/dl (6.4-8.2); URIC ACID 4.9 mg/dL (2.6-7.2)
[2019-08-25] MEDS ORDERED: ACETAMINOPHEN 325 MG TABLET (FP) ONE (14:55)
[2019-08-25 18:46] VITALS: BP 137/59; PULSE 72; TEMP 97.7
[2019-08-26 16:07] LABS: BETA-2-MICROGLOBULIN 1.5 mg/L (0.6-2.4)
== END 2019-08-25 15:55 | disposition home or self-care (01) ==
LOC: JONCCHEMO 05:38 → J7W 11:29 → JONCCHEMO 15:55
PROVIDERS: ATTEND Internal Medicine Hematology & Oncology
PROC: 3E043GC Introduction of Other Therapeutic Substance into Central Vein, Percutaneous Approach (ICD-10-PCS; principal; 2019-08-25)
PROC: 3E043GC Introduction of Other Therapeutic Substance into Central Vein, Percutaneous Approach (ICD-10-PCS; 2019-08-25)
DX: C91.10 Chronic lymphocytic leukemia of B-cell type not having achieved remission (principal); D80.1 Nonfamilial hypogammaglobulinemia; C50.912 Malignant neoplasm of unspecified site of left female breast; Z17.0 Estrogen receptor positive status [ER+]
CPT/HCPCS: 36415; 80053; 82232; 82784; 83615; 83735; 84550; 85025; 96361; 96365; 96366; 96367; J1459

== ENCOUNTER 2019-09-22 07:06 | Day surgery (SDC) | payer OTHER, MEDICARE ==
[2019-09-22] MEDS ORDERED: SODIUM CHLORIDE 250 ML IV ONE ×2 (10:00→12:00)
[2019-09-22] MEDS ORDERED: ACETAMINOPHEN 325 MG TABLET (FP) PO ONE (10:00)
[2019-09-22] MEDS ORDERED: DIPHENHYDRAMINE 50 MG in SODIUM CHLORIDE 50 ML IVPB ONE (10:00)
[2019-09-22] MEDS ORDERED: [UNRECOGNIZED DRUG - OTHER] IVPB ONE (10:30)
[2019-09-22] MEDS ORDERED: IMMUNE GLOBULIN IVPB ONE (10:30)
[2019-09-22 14:33] LABS: BASO % 0.7 % (0-2.0); EOS % 2.8 % (0-4.5); HEMATOCRIT 39.1 % (32.4-45.2); HEMOGLOBIN 13.1 GM/dL (10.7-15.3); LYMPH % 22.9 % (8-40); MCH 29.1 pg (25.7-33.7); MCHC 33.6 g/dl (32.0-36.0); MEAN CELL VOLUME 86.4 fl (80-96); MEAN PLT VOLUME 9.9 fl (7.5-11.1); MONO % 6.5 % (3.8-10.2); NEUT % 67.1 % (42.8-82.8); PLATELET COUNT 183 K/MM3 (134-434); RBC 4.52 M/mm3 (3.60-5.2); RDW 13.4 % (11.6-15.6); WHITE BLOOD COUNT 5.3 K/mm3 (4.0-10.0)
[2019-09-22 14:36] LABS: ALBUMIN 3.4 g/dl (3.4-5.0); BILIRUBIN,TOTAL 0.3 mg/dL (0.2-1); BLOOD UREA NITROGEN 12.4 mg/dL (7-18); CALCIUM 9.2 mg/dL (8.5-10.1); CREATININE 0.7 mg/dL (0.55-1.3); MAGNESIUM 2.2 mg/dL (1.8-2.4); POTASSIUM 3.6 mmol/L (3.5-5.1); TOT PROT 6.4 g/dl (6.4-8.2)
--- NOTE | 2019-09-22 16:38 | RAPID ---
<Matthew Hyatt - Last Filed: 09/22/19 22:50> Physical Examination Vital Signs: HR 84, BP 152/71, 22, 100% on RA Findings/Remarks: Rapid Response(@17:33) for called for tripping and hitting head and Right lateral leg. Nursing staff concerned for AMS. Patient had completed infusion. Denies ANTHONY, dizziness, CP, SOB. Refused ED evaluation Constitutional: Yes: Calm Eyes: Yes: EOM Intact HENT: Yes: Atraumatic, Normocephalic Neck: Yes: Supple, Trachea Midline Cardiovascular: Yes: Regular Rate and Rhythm, S1, S2 Respiratory: Yes: CTA Bilaterally Gastrointestinal: Yes: Soft Neurological: Yes: Alert, Oriented, Cran Nerves II-XII Intact. No: Aphasia, Confusion, Facial Droop, Loss of Sensation, Numbness ...Motor Strength: WNL Labs: CBC, BMP 09/22/19 13:05 09/22/19 13:05 Rapid Response - Rapid Response Assessment: no major concern for acute neuro path. Outcome: Recommend ED evaluation for possible CT head. Pt was hesitant to get evaluated. <Yuridia Rangel - Last Filed: 09/27/19 12:04> Physical Examination Vital Signs: Vital Signs Temperature 97.6 F 09/22/19 12:51 Pulse Rate 79 09/22/19 12:51 Respiratory Rate 20 09/22/19 12:51 Blood Pressure 159/69 09/22/19 12:51 O2 Sat by Pulse Oximetry (%) Labs: CBC, BMP 09/22/19 13:05 09/22/19 13:05 Critical Care Total Critical Care Time (in minutes): 25
[2019-09-22 17:37] VITALS: BP 159/69; PULSE 79; TEMP 97.6
[2019-09-22] MEDS ORDERED: PORTA CATH FLUSH 10 ML IVPUSH ONE (17:37)
== END 2019-09-22 17:46 | disposition home or self-care (01) ==
LOC: JONCCHEMO 07:06 → J7W 12:51 → JONCCHEMO 17:46
PROVIDERS: ATTEND Internal Medicine Hematology & Oncology
PROC: 3E033GC Introduction of Other Therapeutic Substance into Peripheral Vein, Percutaneous Approach (ICD-10-PCS; principal; 2019-09-22)
PROC: 3E033GC Introduction of Other Therapeutic Substance into Peripheral Vein, Percutaneous Approach (ICD-10-PCS; 2019-09-22)
DX: Z76.89 Persons encountering health services in other specified circumstances (principal); C91.10 Chronic lymphocytic leukemia of B-cell type not having achieved remission; D80.1 Nonfamilial hypogammaglobulinemia; E03.9 Hypothyroidism, unspecified; E78.00 Pure hypercholesterolemia, unspecified; S09.90XA Unspecified injury of head, initial encounter; W18.30XA Fall on same level, unspecified, initial encounter; Y93.89 Activity, other specified; Y92.238 Other place in hospital as the place of occurrence of the external cause
CPT/HCPCS: 36415; 80053; 83735; 85025; 96365; 96366; 96367; J1459

== ENCOUNTER 2019-09-22 17:47 | Emergency (ER) | payer OTHER, MEDICARE ==
[2019-09-22 17:58] VITALS: BP 115/54; PULSE 72; TEMP 98; BMI 27.9
--- NOTE | 2019-09-22 17:59 | PDOC ---
Rapid Medical Evaluation Time Seen by Provider: 09/22/19 17:55 Medical Evaluation: Allergies Allergy/AdvReac Type Severity Reaction Status Date / Time No Known Allergies Allergy Unverified 01/06/19 09:37 09/22/19 17:55 CC: right knee, right hip and headache s/p mechanical fall. Denies LOC. After getting IVIG treatment. PE: No focal neuro deficits. No bony tenderness. Orders: xray, CTH Patient will proceed to ER for further evaluation. Discharge Disposition - Diagnosis Fall - Referrals Referrals: Sarabjit Paez MD [Primary Care Provider] - - Patient Instructions - Post Discharge Activity
--- NOTE | 2019-09-22 19:36 | PDOC ---
History of Present Illness - General Chief Complaint: Injury Stated Complaint: FALL Time Seen by Provider: 09/22/19 17:55 History Source: Patient - History of Present Illness Occurred: reports: this evening Pain Location: reports: head, lower extremity Method of Injury: Yes: fall Past History - Past Medical History Allergies/Adverse Reactions: Allergies Allergy/AdvReac Type Severity Reaction Status Date / Time No Known Allergies Allergy Unverified 09/22/19 17:58 Home Medications: Ambulatory Orders Levothyroxine Sodium [Unithroid] 50 mcg PO DAILY 05/04/15 Dicyclomine HCl 10 mg PO ASDIR 05/06/19 Anemia: No Asthma: No Cancer: Yes (CLL; LEFT BREAST CANCER) Cardiac Disorders: No CVA: No COPD: No CHF: No Dementia: No Diabetes: No GI Disorders: No Disorders: No HTN: No Hypercholesterolemia: No Liver Disease: No Seizures: No Thyroid Disease: Yes (HYPOTHYROID) - Surgical History Appendectomy: No Cholecystectomy: Yes (1978) Neurologic Surgery: No - Psycho Social/Smoking Cessation Hx Smoking History: Never smoked Have you smoked in the past 12 months: No Hx Alcohol Use: No Drug/Substance Use Hx: No Substance Use Type: None Hx Substance Use Treatment: No Review of Systems - Review of Systems Cardiac (ROS): No: Chest Pain, Lightheadedness, Palpitations, Syncope ABD/GI: No: Nausea, Vomiting, Abdominal cramping Musculoskeletal: Yes: Joint Pain. No: Back Pain, Neck Pain Neurological: No: Headache, Dizziness *Physical Exam - Vital Signs Last Vital Signs Temp Pulse Resp BP Pulse Ox 98 F 72 18 115/54 L 99 09/22/19 17:55 09/22/19 17:55 09/22/19 17:55 09/22/19 17:55 09/22/19 17:55 - Physical Exam General Appearance: Yes: Appropriately Dressed. No: Apparent Distress HEENT: positive: Normal Voice. negative: Scleral Icterus (R), Scleral Icterus ( L) Neck: positive: Supple Respiratory/Chest: positive: Lungs Clear, Normal Breath Sounds. negative: Respiratory Distress Cardiovascular: positive: Regular Rate, S1, S2 Gastrointestinal/Abdominal: positive: Soft. negative: Tender Musculoskeletal: negative: Vertebral Tenderness Extremity: positive: Normal Inspection, Normal Range of Motion. negative: Tender, Swelling Integumentary: positive: Dry, Warm Neurologic: positive: Fully Oriented, Alert, Normal Mood/Affect Medical Decision Making - Medical Decision Making 09/22/19 19:31 88-year-old female, history of CLL, on immunoglobulin infusion, not on any blood thinners, here in ED for evaluation after fall. Patient states while she was upstairs at [facility] and had just completed her infusion, she thinks she might have tripped on a wheel attached to a nursing cart and fell mostly onto her R side. States she did hit her head but not hard and denies LOC, headache, dizziness, visual changes, nausea, vomiting or focal weakness. Also complaining of R hip and knee pain but ambulatory since fall. Denies chest pain or dizziness prior to fall See exam Minor injuries s/p mechanical fall Exam unremarkable, ambulatory since fall CT head/hip/knee xrays neg Dc to return as needed Discharge - Discharge Information Problems reviewed: Yes Clinical Impression/Diagnosis: Fall Qualifiers: Encounter type: initial encounter Qualified Code(s): W19.XXXA - Unspecified fall, initial encounter Hip pain Qualifiers: Laterality: right Qualified Code(s): M25.551 - Pain in right hip Knee pain, right Qualifiers: Chronicity: acute Qualified Code(s): M25.561 - Pain in right knee Condition: Good Disposition: HOME - Follow up/Referral Referrals: Sarabjit Paez MD [Primary Care Provider] - - Patient Discharge Instructions Additional Instructions: Based on your exam and your images, there is no evidence of serious injury at this time Return to ER as needed as discussed in ER - Post Discharge Activity
== END 2019-09-22 19:49 | disposition home or self-care (01) ==
LOC: JERFT 17:47
DX: R51 Headache (principal); M25.551 Pain in right hip; M25.561 Pain in right knee; W01.0XXA Fall on same level from slipping, tripping and stumbling without subsequent striking against object, initial encounter; Y93.89 Activity, other specified; Y92.238 Other place in hospital as the place of occurrence of the external cause; Y99.8 Other external cause status; C91.10 Chronic lymphocytic leukemia of B-cell type not having achieved remission; Z79.899 Other long term (current) drug therapy; Z85.3 Personal history of malignant neoplasm of breast; E03.9 Hypothyroidism, unspecified
CPT/HCPCS: 70450-TC; 73523-TC-FY; 73560-TC-RT-FY; 99281-25

== ENCOUNTER 2019-10-20 07:16 | Day surgery (SDC) | payer OTHER, MEDICARE ==
[2019-10-20] MEDS ORDERED: SODIUM CHLORIDE 250 ML IV ONE ×2 (09:00→13:00)
[2019-10-20] MEDS ORDERED: DIPHENHYDRAMINE 50 MG in SODIUM CHLORIDE 50 ML IVPB ONE (09:30)
[2019-10-20] MEDS ORDERED: ACETAMINOPHEN 325 MG TABLET (FP) PO ONE (09:30)
[2019-10-20] MEDS ORDERED: IMMUN GLOB IVPB ONE (10:00)
[2019-10-20] MEDS ORDERED: PRO IVPB ONE (10:00)
[2019-10-20] MEDS ORDERED: IGA IVPB ONE (10:00)
[2019-10-20 13:28] LABS: BASO % 0.7 % (0-2.0); EOS % 2.4 % (0-4.5); HEMATOCRIT 37.6 % (32.4-45.2); HEMOGLOBIN 12.6 GM/dL (10.7-15.3); LYMPH % 30.5 % (8-40); MCH 29.1 pg (25.7-33.7); MCHC 33.6 g/dl (32.0-36.0); MEAN CELL VOLUME 86.6 fl (80-96); MEAN PLT VOLUME 9.5 fl (7.5-11.1); MONO % 7.5 % (3.8-10.2); NEUT % 58.9 % (42.8-82.8); PLATELET COUNT 160 K/MM3 (134-434); RBC 4.34 M/mm3 (3.60-5.2); RDW 13.5 % (11.6-15.6)
[2019-10-20 13:56] LABS: ALBUMIN 3.5 g/dl (3.4-5.0); BILIRUBIN,TOTAL 0.6 mg/dL (0.2-1); BLOOD UREA NITROGEN 14.3 mg/dL (7-18); CALCIUM 9.1 mg/dL (8.5-10.1); CREATININE 0.8 mg/dL (0.55-1.3); MAGNESIUM 2.1 mg/dL (1.8-2.4); POTASSIUM 3.9 mmol/L (3.5-5.1); TOT PROT 6.3 g/dl (6.4-8.2); URIC ACID 5.2 mg/dL (2.6-7.2)
[2019-10-20 16:27] VITALS: TEMP 97.4
[2019-10-20 16:32] VITALS: BP 166/84; PULSE 68
[2019-10-20] MEDS ORDERED: PORTA CATH FLUSH 10 ML IVPUSH ONE (16:32)
== END 2019-10-20 16:00 | disposition home or self-care (01) ==
LOC: JONCCHEMO 07:16 → J7W 11:22 → JONCCHEMO 16:00
PROVIDERS: ATTEND Internal Medicine Hematology & Oncology
PROC: 3E043GC Introduction of Other Therapeutic Substance into Central Vein, Percutaneous Approach (ICD-10-PCS; principal; 2019-10-20)
PROC: 3E043GC Introduction of Other Therapeutic Substance into Central Vein, Percutaneous Approach (ICD-10-PCS; 2019-10-20)
DX: C91.10 Chronic lymphocytic leukemia of B-cell type not having achieved remission (principal); D80.1 Nonfamilial hypogammaglobulinemia; Z76.89 Persons encountering health services in other specified circumstances
CPT/HCPCS: 36415; 80053; 82232; 82784; 83615; 83735; 84550; 85025; 96361; 96365; 96366; 96375; J1459

== ENCOUNTER 2020-04-01 08:30 | Day surgery (SDC) | payer OTHER, MEDICARE ==
[2020-04-01] MEDS ORDERED: DIPHENHYDRAMINE 50 MG in SODIUM CHLORIDE 50 ML IVPB ONE (09:30)
[2020-04-01] MEDS ORDERED: SODIUM CHLORIDE 250 ML IV ONE ×2 (09:30→13:00)
[2020-04-01] MEDS ORDERED: ACETAMINOPHEN 325 MG TABLET (FP) PO ONE (09:30)
[2020-04-01] MEDS ORDERED: IMMUN GLOB G(IGG)/PRO/IGA 0-50 200 ML, IMMUN GLOB G(IGG)/PRO/IGA 0-50 50 ML IVPB ONE (10:00)
[2020-04-01 12:05] LABS: BASO % 0.7 % (0-2.0); EOS % 1.6 % (0-4.5); HEMATOCRIT 40.5 % (32.4-45.2); HEMOGLOBIN 13.2 GM/dL (10.7-15.3); LYMPH % 23.2 % (8-40); MCH 28.9 pg (25.7-33.7); MCHC 32.6 g/dl (32.0-36.0); MEAN CELL VOLUME 88.9 fl (80-96); MEAN PLT VOLUME 9.4 fl (7.5-11.1); MONO % 6.9 % (3.8-10.2); NEUT % 67.6 % (42.8-82.8); PLATELET COUNT 182 K/MM3 (134-434); RBC 4.56 M/mm3 (3.60-5.2); RDW 13.2 % (11.6-15.6); WHITE BLOOD COUNT 4.9 K/mm3 (4.0-10.0)
[2020-04-01 12:47] LABS: BILIRUBIN,DIRECT 0.2 mg/dL (0.0-0.2); BILIRUBIN,TOTAL 0.7 mg/dL (0.2-1); BLOOD UREA NITROGEN 11.4 mg/dL (7-18); CALCIUM 9.8 mg/dL (8.5-10.1); CREATININE 0.8 mg/dL (0.55-1.3); MAGNESIUM 2.3 mg/dL (1.8-2.4); POTASSIUM 4.2 mmol/L (3.5-5.1); TOT PROT 6.4 g/dl (6.4-8.2); URIC ACID 5.1 mg/dL (2.6-7.2)
[2020-04-01 15:21] VITALS: PULSE 72; TEMP 97.5
[2020-04-01 15:34] LABS: ALBUMIN 3.2 g/dl (3.4-5.0); BILIRUBIN,DIRECT 0.4 mg/dL (0.0-0.2); BILIRUBIN,TOTAL 0.9 mg/dL (0.2-1); TOT PROT 6.2 g/dl (6.4-8.2)
[2020-04-01 15:42] VITALS: BP 136/74
[2020-04-03 06:08] LABS: HEP B CORE AB, TOT Positive (Negative)
[2020-04-03 20:10] LABS: HEP B CORE AB, TOT Positive (Negative)
== END 2020-04-01 15:00 | disposition home or self-care (01) ==
LOC: JONCCHEMO 08:30
PROVIDERS: ATTEND Nurse Practitioner Family
PROC: 3E043WK Introduction of Immunostimulator into Central Vein, Percutaneous (ICD-10-PCS; principal; 2020-04-01)
DX: D80.1 Nonfamilial hypogammaglobulinemia (principal); C91.10 Chronic lymphocytic leukemia of B-cell type not having achieved remission
CPT/HCPCS: 36415; 80048; 80076; 82232; 82378; 82784; 83615; 83735; 84439; 84443; 84550; 85025; 86300; 86704; 86706; 86707; 86708; 86709; 86803; 87340; 96365; 96366; 96375; J1459

== ENCOUNTER 2020-05-12 07:15 | Day surgery (SDC) | payer OTHER, MEDICARE ==
[2020-05-12] MEDS ORDERED: DIPHENHYDRAMINE 50 MG in SODIUM CHLORIDE 50 ML IVPB ONE (10:00)
[2020-05-12] MEDS ORDERED: ACETAMINOPHEN 325 MG TABLET (FP) PO ONE (10:00)
[2020-05-12] MEDS ORDERED: SODIUM CHLORIDE 250 ML IV ONE ×2 (10:00→12:00)
[2020-05-12] MEDS ORDERED: IMMUN GLOB G(IGG)/PRO/IGA 0-50 200 ML, IMMUN GLOB G(IGG)/PRO/IGA 0-50 50 ML IVPB ONE (10:30)
[2020-05-12 11:55] LABS: ALBUMIN 3.9 g/dl (3.4-5.0); BILIRUBIN,DIRECT 0.1 mg/dL (0.0-0.2); BILIRUBIN,TOTAL 0.4 mg/dL (0.2-1); TOT PROT 6.2 g/dl (6.4-8.2)
[2020-05-12 11:58] LABS: BLOOD UREA NITROGEN 11.5 mg/dL (7-18); CALCIUM 9.2 mg/dL (8.5-10.1); CREATININE 0.7 mg/dL (0.55-1.3); MAGNESIUM 2.4 mg/dL (1.8-2.4); POTASSIUM 4.1 mmol/L (3.5-5.1)
[2020-05-12 11:58] LABS: BASO % 0.6 % (0-2.0); EOS % 1.3 % (0-4.5); HEMOGLOBIN 13.2 GM/dL (10.7-15.3); LYMPH % 28.3 % (8-40); MCH 29.7 pg (25.7-33.7); MCHC 33.8 g/dl (32.0-36.0); MEAN CELL VOLUME 87.9 fl (80-96); MEAN PLT VOLUME 9.9 fl (7.5-11.1); MONO % 8.5 % (3.8-10.2); NEUT % 61.3 % (42.8-82.8); PLATELET COUNT 178 K/MM3 (134-434); RBC 4.44 M/mm3 (3.60-5.2); RDW 13.2 % (11.6-15.6); WHITE BLOOD COUNT 5.5 K/mm3 (4.0-10.0)
[2020-05-12 16:00] VITALS: TEMP 97.8
[2020-05-12 16:02] VITALS: BP 128/64; PULSE 57
== END 2020-05-12 14:20 | disposition home or self-care (01) ==
LOC: JONCCHEMO 07:15
PROVIDERS: ATTEND Nurse Practitioner Family
PROC: 3E033GC Introduction of Other Therapeutic Substance into Peripheral Vein, Percutaneous Approach (ICD-10-PCS; principal; 2020-05-12)
PROC: 3E043GC Introduction of Other Therapeutic Substance into Central Vein, Percutaneous Approach (ICD-10-PCS; 2020-05-12)
DX: D80.1 Nonfamilial hypogammaglobulinemia (principal); C91.10 Chronic lymphocytic leukemia of B-cell type not having achieved remission
CPT/HCPCS: 36415; 80048; 80076; 82784; 83615; 83735; 85025; 96365; 96367; J1459

== ENCOUNTER 2020-06-10 06:29 | Day surgery (SDC) | payer OTHER, MEDICARE ==
[2020-06-10] MEDS ORDERED: SODIUM CHLORIDE 250 ML IV ONE ×2 (09:00→12:00)
[2020-06-10] MEDS ORDERED: ACETAMINOPHEN 325 MG TABLET (FP) PO ONE (09:30)
[2020-06-10] MEDS ORDERED: DIPHENHYDRAMINE 50 MG in SODIUM CHLORIDE 50 ML IVPB ONE (09:30)
[2020-06-10] MEDS ORDERED: IMMUN GLOB G(IGG)/PRO/IGA 0-50 200 ML, IMMUN GLOB G(IGG)/PRO/IGA 0-50 50 ML IVPB ONE (10:00)
[2020-06-10 11:30] LABS: EOS % 2.2 % (0-4.5); HEMATOCRIT 39.4 % (32.4-45.2); HEMOGLOBIN 13.2 GM/dL (10.7-15.3); LYMPH % 21.9 % (8-40); MCH 29.7 pg (25.7-33.7); MCHC 33.5 g/dl (32.0-36.0); MEAN CELL VOLUME 88.7 fl (80-96); MEAN PLT VOLUME 9.8 fl (7.5-11.1); MONO % 11.3 % (3.8-10.2); NEUT % 63.6 % (42.8-82.8); PLATELET COUNT 202 K/MM3 (134-434); RBC 4.44 M/mm3 (3.60-5.2); RDW 14.7 % (11.6-15.6); WHITE BLOOD COUNT 5.3 K/mm3 (4.0-10.0)
[2020-06-10 12:01] LABS: ALBUMIN 3.7 g/dl (3.4-5.0); BILIRUBIN,DIRECT 2.2 mg/dL (0.0-0.2); BILIRUBIN,TOTAL 2.5 mg/dL (0.2-1); BLOOD UREA NITROGEN 12.8 mg/dL (7-18); CALCIUM 9.9 mg/dL (8.5-10.1); CREATININE 0.7 mg/dL (0.55-1.3); MAGNESIUM 2.3 mg/dL (1.8-2.4); POTASSIUM 4.1 mmol/L (3.5-5.1); TOT PROT 6.8 g/dl (6.4-8.2); URIC ACID 4.5 mg/dL (2.6-7.2)
[2020-06-10 16:25] VITALS: TEMP 97.8
[2020-06-10 16:42] VITALS: BP 154/64; PULSE 67
[2020-06-10] MEDS ORDERED: PORTA CATH FLUSH 10 ML IVPUSH ONE (16:42)
== END 2020-06-10 15:30 | disposition home or self-care (01) ==
LOC: JONCCHEMO 06:29
PROVIDERS: ATTEND Internal Medicine Hematology & Oncology
PROC: 3E043GC Introduction of Other Therapeutic Substance into Central Vein, Percutaneous Approach (ICD-10-PCS; principal; 2020-06-10)
PROC: 3E043GC Introduction of Other Therapeutic Substance into Central Vein, Percutaneous Approach (ICD-10-PCS; 2020-06-10)
DX: D80.1 Nonfamilial hypogammaglobulinemia (principal); C91.10 Chronic lymphocytic leukemia of B-cell type not having achieved remission
CPT/HCPCS: 36415; 80048; 80076; 82232; 82784; 82785; 83615; 83735; 84550; 85025; 96361; 96365; 96366; 96375; J1459

== ENCOUNTER 2020-07-08 07:19 | Day surgery (SDC) | payer OTHER, MEDICARE ==
--- OUTSIDE RECORDS SUMMARY | 2020-07-08 07:46 | XMS ---
:1930 [facility] Organization [facility] Care Team Providers Name Role Phone Noyer, Maciej Unavailable Unavailable Noyer, Maciej Unavailable Unavailable Noyer, Maciej Unavailable Unavailable Noyer, Maciej Unavailable Unavailable Noyer, Maciej Unavailable Unavailable Noyer, Maciej Unavailable Unavailable Jeffers, Bouchra MD Unavailable Unavailable Jeffers, Bouchra MD Unavailable Unavailable Jeffers, Bouchra MD Unavailable Unavailable Jeffers, Bouchra MD Unavailable Unavailable Jeffers, Bouchra MD Unavailable Unavailable Jeffers, Bouchra MD Unavailable Unavailable Jeffers, Bouchra MD Unavailable Unavailable Jeffers, Bouchra MD Unavailable Unavailable Jeffers, Bouchra MD Unavailable Unavailable Jeffers, Bouchra MD Unavailable Unavailable Jeffers, Bouchra MD Unavailable Unavailable Jeffers, Bouchra MD Unavailable Unavailable Re-disclosure Warning The records that you are about to access may contain information from federally- assisted alcohol or drug abuse programs. If such information is present, then the following federally mandated warning applies: This information has been disclosed to you from records protected by federal confidentiality rules (42 CFR part 2). The federal rules prohibit you from making any further disclosure of this information unless further disclosure is expressly permitted by the written consent of the person to whom it pertains or as otherwise permitted by 42 CFR part 2. A general authorization for the release of medical or other information is NOT sufficient for this purpose. The Federal rules restrict any use of the information to criminally investigate or prosecute any alcohol or drug abuse patient.The records that you are about to access may contain highly sensitive health information, the redisclosure of which is protected by Article 27-F of the [facility] Public Health law. If you continue you may haveaccess to information: Regarding HIV / AIDS; Provided by facilities licensed or operated by the [facility] Office of Mental Health; or Provided by the [facility] Office for People With Developmental Disabilities. If such information is present, then the following [facility] mandated warning applies: This information has been disclosed to you from confidential records which are protected by state law. State law prohibits you from making any further disclosure of this information without the specific written consent of the person to whom it pertains, or as otherwise permitted by law. Any unauthorized further disclosure in violation of state law may result in a fine or intermediate sentence or both. A general authorization for the release of medical or other information is NOT sufficient authorization for further disclosure. Family History Family Member Family Member Family Member Date of Description Data Source(s) Name Gender Status Status Unknown Male Problem MED[facility] ([facility] ) Encounters Encounter Providers Location Date Indications Data Source(s ) Outpatient Attender: Maciej 06/29/2020 ABNORMAL RESULTS W [facility] 04:45:00 PM LIVER FUNCTION Hospital EDT - STUDIES WEIGHT LOS 06/29/2020 04:31:00 PM EDT ABNORMAL RESULTS LIVER FUNCTION STUDIES WEIGHT LOS Patient discharged. Outpatient Attender: Digestive 06/21/2020 MEDENT (Digest yesi Bouchra Jeffers Disease & 01:20:00 PM EDT Dise [facility] ) Outpatient Attender: Digestive 05/28/2020 MEDENT (Digest yesi Bouchra Jeffers Disease & 02:10:00 PM EDT Dise [facility] ) Outpatient 05/21/2020 KATHY Capone 10:00:00 AM EDT Hospital ANNUAL Outpatient Attender: Digestive 04/16/2020 MEDENT (Digest yesi Bouchra Jeffers Disease & 02:40:00 PM EDT Dise [facility] ) Outpatient Attender: Digestive 09/26/2019 MEDENT (Digest yesi Bouchra Jeffers Disease & 10:20:00 AM EST Dise [facility] ) Outpatient Attender: Digestive 08/18/2019 MEDENT (Digest yesi Bouchra Jeffers Disease & 11:00:00 AM EST Dise Taniya Nutrition Nutrition [facility] ) Outpatient Attender: Digestive 05/20/2019 MEDENT (Digest yesi Bouchra Moeller Disease & 03:40:00 PM EDT Dise [facility]aniya Nutrition Nutrition [facility] ) Outpatient 05/20/2019 RTNE [facility] [place] 10:31:00 AM EDT RX OP [facility] RX OP [facility] Medications Medication Brand Start Product Dose Route Administrative Pharmacy [facility] Indications Reaction Description Data Name Date Form Instructions Instructions Source(s) Dicyclomine Dicycl 09/12/ active ME DENT Hydrochlori omine 2018 (Digest yesi de 10 MG HCL 12:00: Disease & Oral 00 AM Nutrition Capsule EST [facility]) Dicyclomine Dicycl 09/11/ complet M EDENT Hydrochlori omine 2018 ed (Digest yesi de 10 MG HCL 12:00: Disease & Oral 00 AM Nutrition Capsule EST [facility]) Dicyclomine Dicycl 05/04/ ORAL complet M EDENT Hydrochlori omine 2018 ed (Digest yesi de 10 MG HCL 12:00: Disease & Oral 00 AM Nutrition Capsule EDT [facility]) Insurance Providers Payer name Policy type Policy ID Covered Covered democrat's Policy P danny / Coverage democrat ID relationship to Tanner Inf ormation type tanner MEDICARE [id number] [id number] [facility] [id number] SP [id number] CARE OPTIONS [facility] [id number] PT [id number] CARE OPTIONS MEDICARE [id number] PT [id number] [place] [id number] PT [id number] [employer] OTHER [facility] [id number] PT [id number] CARE OPTIONS MEDICARE [id number] PT [id number] MEDICARE [id number] SP [id number] A MEDICARE [id number] SP [id number] [id number] [place] [id number] SP [id number] [facility] [id number] Self [id number] Healthcare Part B Medicare Medicare [id number] Self [id number] [id number] [place] [facility] [id number] SP [id number] CARE OPTIONS [facility] [id number] Self [id number] Healthcare Part B Medicare Medicare [id number] Self [id number] C71 [place] [facility] [employer] [facility] [id number] PT [id number] CARE OPTIONS MEDICARE [id number] PT [id number] A OPTUM [id number] PT [id number] SECONDARY [employer] [facility] [id number] Self [id number] Healthcare Part B Medicare Medicare [id number] Self [id number] [place] [facility] Problems, Conditions, and Diagnoses Code Display Name Description Problem Type Effective Dates Data Source(s) Z80.3 Family history of Z80.3 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 [place] malignant neoplasm of 09:29:00 AM ED T Hospital breast 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 09:29:00 AM EDT 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 and 09:29:00 AM EDT Hosp ital nipple Z85.3 Personal history of Z85.3 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:29:00 AM ED T Hospital breast Z12.31 Encounter for Z12.31 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 [place] screening mammogram 09:29:00 AM EDT Hospital for malignant neoplasm of breast R92.1 Mammographic R92.1 Diagnosis 05/20/2019 [place] calcification found 10:31:00 AM EDT Hospital on diagnostic imaging of breast Surgeries/Procedures Procedure Description Date Indications Data Source(s) UPPER GI NDSC ULTRASOUND GUIDED 06/29/2020 [facility] (Digestive BIOPSY 12:00:00 AM Disease & EDT Nutrition [facility]) Ercp W/Stent Biliary/Pancreatic 06/29/2020 MED[facility] (Digestive Duct Incld Sphinct When 12:00:00 AM Dise ase & Preformed EDT Nutrition [facility]) Endoscopic retrograde 06/29/2020 [place] cholangiopancreatography 12:00:00 AM Hos pital (procedure) EDT Endoscopic retrograde 06/29/2020 [facility] cholangiopancreatography 12:00:00 AM Hos pital (procedure) EDT Endoscopic ultrasound of upper 06/29/2020 [place] gastrointestinal tract 12:00:00 AM Hospi horace (procedure) EDT Results ID Date Data Source [id number] 06/29/2020 04:45:00 PM EDT [facility] Flosser:AARON GARCIA Name Value Range Interpretation Code Description Data Brianda rce(s) Supporting Document(s ) POC SARS NEGATIVE [address] ID Date Data Source [id number] 06/29/2020 10:49:00 AM EDT [facility] Name Value Range Interpretation Description Data Sup porting Code Source(s) Document(s ) Laboratory Laboratory MEDENT test finding test result (Digestive (navigational Disease & concept) Health system ) ID Date Data Source [id number] 04/07/2020 11:45:00 AM EDT [facility] Name Value Range Interpretation Description Data Sup porting Code Source(s) Document(s ) Laboratory Laboratory MED[facility] test finding test result (Dig[facility]ive (nav[facility]ational Disease & concept) [facility] system ) Procedure Vital Signs ID Date Data Source UNK Name Value Range Interpretation Code Description Data Source(s) Diastolic blood 70 mm[Hg] 70 mm[Hg] [facility] pressure Hospital Systolic blood 157 mm[Hg] 157 mm[Hg] [facility] ns pressure [facility] Respiratory rate 16 /min 16 /min [facility] Heart rate 75 /min 75 /min [facility] Body temperature 36.10977 36.40572 [facility] Body temperature 97.5 [degF] 97.5 [degF] [facility] Body mass index 27.0 kg/m2 27.0 kg/m2 [facility] (BMI) [Ratio] Hospital Body weight 138 [lb_av] 138 [lb_av] [facility] Body mass index 25.6 kg/m2 25.6 kg/m2 [facility] (BMI) [Ratio] ([facility]) [place] body weight 100 [lb_av] 100 [lb_av] MEDEN T ([facility] Disease [facility]) Body weight 131.00 131.00 [lb_av] [facility] [lb_av] ([facility] Disease [facility]) Body height 60 [in_i] 60 [in_i] [facility] ([facility] Disease [facility]) 5'0" Respiratory rate 13 /min 13 /min [facility] ( Dig[facility]ive Disease [facility]) Heart rate 71 /min 71 /min [facility] (Digest yesi Disease & Nutrition [facility]) Diastolic blood pressure 70 mm[Hg] 70 mm[Hg] [facility] (Digestive Disease [facility] Nutrition [facility]) Systolic blood pressure 120 mm[Hg] 120 mm[Hg] [facility] (Digestive Disease & Nutrition [facility]) Body temperature 98.2 [degF] 98.2 [degF] [facility] ([facility]estive Disease & Nutrition [facility]) Body mass index (BMI) 26.9 kg/m2 26.9 kg/m2 MED E[facility] (Digestive Disease [Ratio] & Nutrition [facility]) [place] body weight 100 [lb_av] 100 [lb_av] [facility]) Body weight 138.00 [lb_av] 138.00 [lb_av] [facility] ([facility]) Body height 60 [in_i] 60 [in_i] [facility] (Diges tive Disease & Nutrition [facility]) 5'0" Respiratory rate 12 /min 12 /min [facility] ( [facility] Disease [facility]) Heart rate 84 /min 84 /min [facility] (Digest yesi Disease & Nutrition [facility]) Diastolic blood pressure 90 mm[Hg] 90 mm[Hg] [facility] ([facility] Disease [facility]) Systolic blood pressure 150 mm[Hg] 150 mm[Hg] [facility] (Digestive Disease & Nutrition [facility]) Body temperature 98.2 [degF] 98.2 [degF] [facility] ([facility] Disease [facility]) Body mass index (BMI) 26.8 kg/m2 26.8 kg/m2 MED E[facility] (Digestive Disease [Ratio] & Nutrition [facility]) Body weight 137.00 [lb_av] 137.00 [lb_av] [facility]) Body height 60 [in_i] 60 [in_i] [facility] (Diges tive Disease & Nutrition [facility]) 5'0" Respiratory rate 13 /min 13 /min [facility] ( [facility] Disease [facility]) Heart rate 88 /min 88 /min [facility] (Digest yesi Disease & Nutrition [facility]) Diastolic blood pressure 80 mm[Hg] 80 mm[Hg] [facility] ([facility]ive Disease [facility]) Systolic blood pressure 118 mm[Hg] 118 mm[Hg] [facility] (Digestive Disease & Nutrition [facility]) Body weight 139.00 [lb_av] 139.00 [lb_av] MEDEN T (Digestive Disease & Nutrition [facility]) Body height 60 [in_i] 60 [in_i] [facility] (Diges tive Disease & Nutrition [facility]) 5'0" Respiratory rate 13 /min 13 /min [facility] ( Digestive Disease & Nutrition [facility]) Heart rate 85 /min 85 /min MED[facility] (Digest yesi Disease & Nutrition [facility]) Diastolic blood pressure 60 mm[Hg] 60 mm[Hg] [facility] (Digestive Disease & Nutrition [facility]) Systolic blood pressure 128 mm[Hg] 128 mm[Hg] [facility] (Digestive Disease & Nutrition [facility]) Body mass index (BMI) [Ratio] 27.1 kg/m2 27.1 k g/m2 [facility] (Digestive Disease & Nutrition [facility]) Body height 60 [in_i] 60 [in_i] [facility] (Diges tive Disease & Nutrition [facility]) 5'0" Respiratory rate 13 /min 13 /min MED[facility] ( Digestive Disease & Nutrition [facility]) Heart rate 75 /min 75 /min [facility] (Digest yesi Disease & Nutrition [facility]) Diastolic blood pressure 86 mm[Hg] 86 mm[Hg] [facility] (Digestive Disease & Nutrition [facility]) Systolic blood pressure 122 mm[Hg] 122 mm[Hg] [facility] (Digestive Disease & Nutrition [facility]) Body mass index (BMI) 26.9 kg/m2 26.9 kg/m2 MED E[facility] (Digestive Disease [Ratio] & Nutrition [facility]) Body weight 138.00 [lb_av] 138.00 [lb_av] MEDEN T (Digestive Disease & Nutrition [facility]) Body height 60 [in_i] 60 [in_i] [facility] (Diges tive Disease & Nutrition [facility]) 5'0" Respiratory rate 13 /min 13 /min MED[facility] ( Digestive Disease & Nutrition [facility]) Heart rate 66 /min 66 /min [facility] (Digest yesi Disease & Nutrition [facility]) Diastolic blood pressure 68 mm[Hg] 68 mm[Hg] [facility] (Digestive Disease & Nutrition [facility]) Systolic blood pressure 120 mm[Hg] 120 mm[Hg] [facility] (Digestive Disease & Nutrition [facility]) Body mass index (BMI) 26.6 kg/m2 26.6 kg/m2 MED E[facility] (Digestive Disease [Ratio] & Nutrition [facility]) Body weight 136.00 [lb_av] 136.00 [lb_av] MEDJOVITA T (Digestive Disease & Nutrition [facility])
[2020-07-08] MEDS ORDERED: DIPHENHYDRAMINE 50 MG in SODIUM CHLORIDE 50 ML IVPB ONE (10:00)
[2020-07-08] MEDS ORDERED: ACETAMINOPHEN 325 MG TABLET (FP) PO ONE (10:00)
[2020-07-08] MEDS ORDERED: SODIUM CHLORIDE 250 ML IV ONE ×2 (10:00→14:00)
[2020-07-08] MEDS ORDERED: IMMUN GLOB G(IGG)/PRO/IGA 0-50 200 ML, IMMUN GLOB G(IGG)/PRO/IGA 0-50 50 ML IVPB ONE (10:30)
[2020-07-08 12:10] LABS: BASO % 0.8 % (0-2.0); EOS % 2.7 % (0-4.5); HEMATOCRIT 36.9 % (32.4-45.2); HEMOGLOBIN 12.3 GM/dL (10.7-15.3); LYMPH % 22.4 % (8-40); MCH 29.2 pg (25.7-33.7); MCHC 33.3 g/dl (32.0-36.0); MEAN CELL VOLUME 87.9 fl (80-96); MEAN PLT VOLUME 10.5 fl (7.5-11.1); MONO % 7.5 % (3.8-10.2); NEUT % 66.6 % (42.8-82.8); PLATELET COUNT 190 K/MM3 (134-434); RDW 14.3 % (11.6-15.6); WHITE BLOOD COUNT 5.8 K/mm3 (4.0-10.0)
[2020-07-08 12:40] LABS: BLOOD UREA NITROGEN 12.2 mg/dL (7-18); CALCIUM 9.2 mg/dL (8.5-10.1); CREATININE 0.6 mg/dL (0.55-1.3); POTASSIUM 3.8 mmol/L (3.5-5.1)
[2020-07-08 12:48] LABS: ALBUMIN 3.1 g/dl (3.4-5.0); BILIRUBIN,DIRECT 1.3 mg/dL (0.0-0.2); BILIRUBIN,TOTAL 1.5 mg/dL (0.2-1); MAGNESIUM 2.2 mg/dL (1.8-2.4); TOT PROT 6.1 g/dl (6.4-8.2); URIC ACID 4.4 mg/dL (2.6-7.2)
[2020-07-08 16:08] VITALS: TEMP 97.9
[2020-07-08] MEDS ORDERED: PORTA CATH FLUSH 10 ML IVPUSH ONE (16:23)
[2020-07-08 17:03] VITALS: BP 138/59; PULSE 78
[2020-07-09 08:07] LABS: IGA IMMUNOGLOBULIN 25 mg/dL (64-422); IGG QN IMMUNOGLOBULIN 722 mg/dL (586-1602); IGM QN SERUM <5 mg/dL (26-217)
[2020-07-10 04:16] LABS: BETA-2-MICROGLOBULIN 1.8 mg/L (0.6-2.4)
== END 2020-07-08 17:10 | disposition home or self-care (01) ==
LOC: JONCCHEMO 07:19
PROVIDERS: ATTEND Internal Medicine Hematology & Oncology
PROC: 3E043GC Introduction of Other Therapeutic Substance into Central Vein, Percutaneous Approach (ICD-10-PCS; principal; 2020-07-08)
DX: D80.1 Nonfamilial hypogammaglobulinemia (principal); C91.10 Chronic lymphocytic leukemia of B-cell type not having achieved remission
CPT/HCPCS: 36415; 80048; 80076; 82232; 82784; 83615; 83735; 84550; 85025; 85651; 86301; 96365; 96366; 96375; J1459

== ENCOUNTER 2020-08-31 06:03 | Day surgery (SDC) | payer OTHER, MEDICARE ==
[2020-08-31] MEDS ORDERED: SODIUM CHLORIDE 250 ML IV ONE ×2 (09:15→13:00)
[2020-08-31] MEDS ORDERED: ACETAMINOPHEN 325 MG TABLET (FP) PO ONE (10:00)
[2020-08-31] MEDS ORDERED: DIPHENHYDRAMINE 50 MG in SODIUM CHLORIDE 50 ML IVPB ONE (10:00)
[2020-08-31 10:03] LABS: BASO % 0.7 % (0-2.0); EOS % 1.8 % (0-4.5); HEMATOCRIT 44.3 % (32.4-45.2); HEMOGLOBIN 14.9 GM/dL (10.7-15.3); LYMPH % 19.8 % (8-40); MCH 29.6 pg (25.7-33.7); MCHC 33.6 g/dl (32.0-36.0); MEAN CELL VOLUME 88.2 fl (80-96); MEAN PLT VOLUME 9.9 fl (7.5-11.1); MONO % 7.6 % (3.8-10.2); NEUT % 70.1 % (42.8-82.8); PLATELET COUNT 246 K/MM3 (134-434); RBC 5.03 M/mm3 (3.60-5.2); RDW 13.4 % (11.6-15.6); WHITE BLOOD COUNT 6.9 K/mm3 (4.0-10.0)
[2020-08-31 10:24] LABS: POTASSIUM 4.2 mmol/L (3.5-5.1)
[2020-08-31 10:27] LABS: ALBUMIN 3.8 g/dl (3.4-5.0); BLOOD UREA NITROGEN 15.2 mg/dL (7-18); CALCIUM 9.9 mg/dL (8.5-10.1); MAGNESIUM 2.2 mg/dL (1.8-2.4)
[2020-08-31 10:30] LABS: CREATININE 0.8 mg/dL (0.55-1.3)
[2020-08-31] MEDS ORDERED: IMMUN GLOB G(IGG)/PRO/IGA 0-50 200 ML, IMMUN GLOB G(IGG)/PRO/IGA 0-50 50 ML IVPB ONE (10:30)
[2020-08-31 10:32] LABS: TOT PROT 7.1 g/dl (6.4-8.2)
[2020-08-31 10:34] LABS: BILIRUBIN,DIRECT 0.2 mg/dL (0.0-0.2); BILIRUBIN,TOTAL 0.4 mg/dL (0.2-1)
[2020-08-31 18:17] VITALS: PULSE 70; TEMP 98.3
[2020-09-01 06:29] VITALS: BP 139/62
== END 2020-08-31 13:45 | disposition home or self-care (01) ==
LOC: JONCCHEMO 06:03
PROVIDERS: ATTEND Internal Medicine Hematology & Oncology
PROC: 3E043GC Introduction of Other Therapeutic Substance into Central Vein, Percutaneous Approach (ICD-10-PCS; principal; 2020-08-31)
DX: D80.1 Nonfamilial hypogammaglobulinemia (principal); C91.10 Chronic lymphocytic leukemia of B-cell type not having achieved remission
CPT/HCPCS: 36415; 80048; 80076; 83735; 85025; 86301; 96365; 96366; 96375; J1459

== ENCOUNTER 2021-04-11 08:51 | Day surgery (SDC) | payer OTHER, MEDICARE ==
[2021-04-11] MEDS ORDERED: ACETAMINOPHEN 325 MG TABLET (FP) PO ONE (10:30)
[2021-04-11] MEDS ORDERED: SODIUM CHLORIDE 250 ML IV ONE ×2 (10:30→14:00)
[2021-04-11] MEDS ORDERED: DIPHENHYDRAMINE 25 MG in SODIUM CHLORIDE 50 ML IVPB ONE (10:30)
[2021-04-11] MEDS ORDERED: IMMUN GLOB G(IGG)/PRO/IGA 0-50 200 ML, IMMUN GLOB G(IGG)/PRO/IGA 0-50 50 ML IVPB ONE (11:00)
[2021-04-11 12:17] LABS: BASO % 0.6 % (0-2.0); EOS % 1.1 % (0-4.5); HEMATOCRIT 37.7 % (32.4-45.2); HEMOGLOBIN 12.6 GM/dL (10.7-15.3); LYMPH % 20.6 % (8-40); MCH 28.1 pg (25.7-33.7); MCHC 33.4 g/dl (32.0-36.0); MEAN CELL VOLUME 84.3 fl (80-96); MEAN PLT VOLUME 8.8 fl (7.5-11.1); MONO % 7.4 % (3.8-10.2); NEUT % 70.3 % (42.8-82.8); PLATELET COUNT 201 10^3/uL (134-434); RBC 4.47 M/mm3 (3.60-5.2); RDW 14.3 % (11.6-15.6); WHITE BLOOD COUNT 7.5 K/mm3 (4.0-10.0)
[2021-04-11 12:38] LABS: BLOOD UREA NITROGEN 14.5 mg/dL (7-18); CALCIUM 9.3 mg/dL (8.5-10.1); MAGNESIUM 2.1 mg/dL (1.8-2.4)
[2021-04-11 12:39] LABS: ALBUMIN 3.8 g/dl (3.4-5.0)
[2021-04-11 12:40] LABS: URIC ACID 4.7 mg/dL (2.6-7.2)
[2021-04-11 12:41] LABS: BILIRUBIN,DIRECT 0.2 mg/dL (0.0-0.2); CREATININE 0.7 mg/dL (0.55-1.3)
[2021-04-11 12:42] LABS: TOT PROT 6.3 g/dl (6.4-8.2)
[2021-04-11 12:44] LABS: BILIRUBIN,TOTAL 0.5 mg/dL (0.2-1)
[2021-04-11 17:00] VITALS: TEMP 98.3
[2021-04-11 18:00] VITALS: BP 173/75; PULSE 61
[2021-04-11] MEDS ORDERED: amLODIPine BESYLATE 5 MG TABLET (FP) PO ONE (18:03)
[2021-04-12 08:09] LABS: CARCINOEMBRYONIC ANTIGEN 0.9 ng/mL (0.0-4.7)
[2021-04-13 06:06] LABS: BETA-2-MICROGLOBULIN 1.8 mg/L (0.6-2.4)
== END 2021-04-11 18:22 | disposition home or self-care (01) ==
LOC: JONCCHEMO 08:51
PROVIDERS: ATTEND Internal Medicine Hematology & Oncology
PROC: 3E043GC Introduction of Other Therapeutic Substance into Central Vein, Percutaneous Approach (ICD-10-PCS; principal; 2021-04-11)
DX: D80.1 Nonfamilial hypogammaglobulinemia (principal); C91.10 Chronic lymphocytic leukemia of B-cell type not having achieved remission
CPT/HCPCS: 36415; 80048; 80076; 82232; 82378; 82784; 83615; 83735; 84550; 85025; 86300; 86301; 86304; 86704; 86803; 87340; 87517; 96365; 96366; 96375; J1459

== ENCOUNTER 2021-05-10 06:29 | Day surgery (SDC) | payer OTHER, MEDICARE ==
[~2021-05-10 06:29] MED LIST changes: -GLY IVPB ONE; -IGA OV50 IVPB ONE; +IMMUN GLOB G(IGG)/PRO/IGA 0-50 200 ML, IMMUN GLOB G(IGG)/PRO/IGA 0-50 50 ML IVPB ONE; -IMMUN GLOB IVPB ONE
[2021-05-10] MEDS ORDERED: SODIUM CHLORIDE 250 ML IV ONE (09:00)
[2021-05-10] MEDS ORDERED: ACETAMINOPHEN 325 MG TABLET (FP) PO ONE (09:30)
[2021-05-10] MEDS ORDERED: DIPHENHYDRAMINE 25 MG in SODIUM CHLORIDE 50 ML IVPB ONE (09:30)
[2021-05-10] MEDS ORDERED: IMMUN GLOB G(IGG)/PRO/IGA 0-50 200 ML, IMMUN GLOB G(IGG)/PRO/IGA 0-50 50 ML IVPB ONE (10:00)
[2021-05-10 12:57] LABS: CALCIUM 8.9 mg/dL (8.5-10.1)
[2021-05-10 12:58] LABS: MAGNESIUM 2.4 mg/dL (1.8-2.4)
[2021-05-10 12:58] LABS: BLOOD UREA NITROGEN 14.6 mg/dL (7-18)
[2021-05-10 12:59] LABS: ALBUMIN 3.6 g/dl (3.4-5.0)
[2021-05-10 13:01] LABS: CREATININE 0.6 mg/dL (0.55-1.3)
[2021-05-10 13:01] LABS: BILIRUBIN,DIRECT 0.1 mg/dL (0.0-0.2); URIC ACID 4.3 mg/dL (2.6-7.2)
[2021-05-10 13:03] LABS: BILIRUBIN,TOTAL 0.3 mg/dL (0.2-1); TOT PROT 6.3 g/dl (6.4-8.2)
[2021-05-10 13:29] LABS: BASO % 0.5 % (0-2.0); EOS % 1.3 % (0-4.5); HEMATOCRIT 37.5 % (32.4-45.2); HEMOGLOBIN 12.6 GM/dL (10.7-15.3); LYMPH % 21.3 % (8-40); MCH 28.5 pg (25.7-33.7); MCHC 33.5 g/dl (32.0-36.0); MONO % 6.5 % (3.8-10.2); NEUT % 70.4 % (42.8-82.8); PLATELET COUNT 203 10^3/uL (134-434); RBC 4.41 M/mm3 (3.60-5.2); RDW 13.8 % (11.6-15.6); WHITE BLOOD COUNT 7.5 K/mm3 (4.0-10.0)
[2021-05-10 18:05] VITALS: TEMP 98.4
[2021-05-10 18:16] VITALS: BP 127/48; PULSE 74
[2021-05-10] MEDS ORDERED: PORTA CATH FLUSH 10 ML IVPUSH ONE (18:16)
[2021-05-13 06:11] LABS: BETA-2-MICROGLOBULIN 1.6 mg/L (0.6-2.4)
== END 2021-05-10 15:45 | disposition home or self-care (01) ==
LOC: JONCCHEMO 06:29
PROVIDERS: ATTEND Internal Medicine Hematology & Oncology
PROC: 3E043GC Introduction of Other Therapeutic Substance into Central Vein, Percutaneous Approach (ICD-10-PCS; principal; 2021-05-10)
PROC: 3E043GC Introduction of Other Therapeutic Substance into Central Vein, Percutaneous Approach (ICD-10-PCS; 2021-05-10)
DX: D80.1 Nonfamilial hypogammaglobulinemia (principal); D50.8 Other iron deficiency anemias
CPT/HCPCS: 36415; 80048; 80076; 82232; 82784; 83615; 83735; 84550; 85025; 86301; 87517; 96361; 96365; 96366; 96375; J1459

== ENCOUNTER 2021-06-29 07:42 | Day surgery (SDC) | payer OTHER, MEDICARE ==
[~2021-06-29 07:42] MED LIST changes: +ACETAMINOPHEN 325 MG TABLET (FP) PO ONE; +DIPHENHYDRAMINE 25 MG in SODIUM CHLORIDE 50 ML IVPB ONE; +SODIUM CHLORIDE 250 ML IV ONE
[2021-06-29] MEDS ORDERED: ACETAMINOPHEN 325 MG TABLET (FP) PO ONE (10:00)
[2021-06-29] MEDS ORDERED: DIPHENHYDRAMINE 25 MG in SODIUM CHLORIDE 50 ML IVPB ONE (10:00)
[2021-06-29] MEDS ORDERED: SODIUM CHLORIDE 250 ML IV ONE (10:00)
[2021-06-29] MEDS ORDERED: IMMUN GLOB G(IGG)/PRO/IGA 0-50 200 ML, IMMUN GLOB G(IGG)/PRO/IGA 0-50 50 ML IVPB ONE (10:30)
[2021-06-29 11:29] LABS: BASO % 0.3 % (0-2.0); EOS % 1.1 % (0-4.5); HEMATOCRIT 37.5 % (32.4-45.2); HEMOGLOBIN 12.5 GM/dL (10.7-15.3); LYMPH % 13.3 % (8-40); MCH 28.7 pg (25.7-33.7); MCHC 33.4 g/dl (32.0-36.0); MEAN PLT VOLUME 8.9 fl (7.5-11.1); MONO % 8.9 % (3.8-10.2); NEUT % 76.4 % (42.8-82.8); PLATELET COUNT 236 10^3/uL (134-434); RBC 4.36 M/mm3 (3.60-5.2); RDW 13.7 % (11.6-15.6); WHITE BLOOD COUNT 7.4 K/mm3 (4.0-10.0)
[2021-06-29 11:58] LABS: CALCIUM 9.2 mg/dL (8.5-10.1)
[2021-06-29 11:59] LABS: ALBUMIN 3.3 g/dl (3.4-5.0); BLOOD UREA NITROGEN 12.5 mg/dL (7-18); MAGNESIUM 2.2 mg/dL (1.8-2.4)
[2021-06-29 12:01] LABS: BILIRUBIN,DIRECT 0.2 mg/dL (0.0-0.2); URIC ACID 3.7 mg/dL (2.6-7.2)
[2021-06-29 12:02] LABS: CREATININE 0.6 mg/dL (0.55-1.3)
[2021-06-29 12:03] LABS: BILIRUBIN,TOTAL 0.5 mg/dL (0.2-1); TOT PROT 6.5 g/dl (6.4-8.2)
[2021-06-29 14:23] VITALS: TEMP 98.6
[2021-06-29 14:29] VITALS: BP 132/51; PULSE 55
[2021-06-30 07:06] LABS: CARCINOEMBRYONIC ANTIGEN 0.9 ng/mL (0.0-4.7); IGA IMMUNOGLOBULIN 96 mg/dL (64-422); IGG QN IMMUNOGLOBULIN 785 mg/dL (586-1602); IGM QN SERUM 30 mg/dL (26-217)
== END 2021-06-29 13:45 | disposition home or self-care (01) ==
LOC: JONCCHEMO 07:42
PROVIDERS: ATTEND Internal Medicine Hematology & Oncology
PROC: 3E043GC Introduction of Other Therapeutic Substance into Central Vein, Percutaneous Approach (ICD-10-PCS; principal; 2021-06-29)
DX: D80.1 Nonfamilial hypogammaglobulinemia (principal); C91.10 Chronic lymphocytic leukemia of B-cell type not having achieved remission; C50.112 Malignant neoplasm of central portion of left female breast; C78.89 Secondary malignant neoplasm of other digestive organs; Z17.0 Estrogen receptor positive status [ER+]
CPT/HCPCS: 36415; 80048; 80076; 82378; 82784; 83615; 83735; 84550; 85025; 86300; 86301; 87517; 96365; 96366; 96367; J1459

== ENCOUNTER 2021-07-18 07:34 | Day surgery (SDC) | payer OTHER, MEDICARE ==
[2021-07-18] MEDS ORDERED: SODIUM CHLORIDE 250 ML IV ONE (12:00)
[2021-07-18 13:58] LABS: BASO % 0.3 % (0-2.0); EOS % 0.9 % (0-4.5); HEMATOCRIT 36.5 % (32.4-45.2); HEMOGLOBIN 12.1 GM/dL (10.7-15.3); LYMPH % 18.3 % (8-40); MCHC 33.1 g/dl (32.0-36.0); MEAN CELL VOLUME 84.8 fl (80-96); MEAN PLT VOLUME 8.5 fl (7.5-11.1); MONO % 7.9 % (3.8-10.2); NEUT % 72.6 % (42.8-82.8); PLATELET COUNT 259 10^3/uL (134-434); RBC 4.31 M/mm3 (3.60-5.2); RDW 13.6 % (11.6-15.6); WHITE BLOOD COUNT 6.9 K/mm3 (4.0-10.0)
[2021-07-18 14:16] LABS: BLOOD UREA NITROGEN 10.8 mg/dL (7-18); CALCIUM 9.2 mg/dL (8.5-10.1); MAGNESIUM 2.4 mg/dL (1.8-2.4)
[2021-07-18 14:19] LABS: BILIRUBIN,DIRECT 0.2 mg/dL (0.0-0.2); CREATININE 0.7 mg/dL (0.55-1.3)
[2021-07-18 14:20] LABS: BILIRUBIN,DIRECT 0.2 mg/dL (0.0-0.2); URIC ACID 3.6 mg/dL (2.6-7.2)
[2021-07-18 14:22] LABS: BILIRUBIN,TOTAL 0.4 mg/dL (0.2-1); TOT PROT 6.6 g/dl (6.4-8.2)
[2021-07-18 14:34] LABS: ALBUMIN 2.9 g/dl (3.4-5.0)
[2021-07-18 16:12] VITALS: PULSE 59; TEMP 98.3
[2021-07-18 16:13] VITALS: BP 130/59
== END 2021-07-18 12:40 | disposition home or self-care (01) ==
LOC: JONCCHEMO 07:34
PROVIDERS: ATTEND Internal Medicine Hematology & Oncology
PROC: 3E0437Z Introduction of Electrolytic and Water Balance Substance into Central Vein, Percutaneous Approach (ICD-10-PCS; principal; 2021-07-18)
DX: D80.1 Nonfamilial hypogammaglobulinemia (principal); C50.112 Malignant neoplasm of central portion of left female breast; C78.89 Secondary malignant neoplasm of other digestive organs; Z17.0 Estrogen receptor positive status [ER+]; Z76.89 Persons encountering health services in other specified circumstances
CPT/HCPCS: 36415; 80048; 80076; 82248; 82378; 82784; 83615; 83735; 84550; 85025; 86300; 86301; 86304; 86708; 87516; 87522; 96365

== ENCOUNTER 2021-07-26 07:41 | Day surgery (SDC) | payer OTHER, MEDICARE ==
[2021-07-26] MEDS ORDERED: SODIUM CHLORIDE 250 ML IV ONE (09:00)
[2021-07-26] MEDS ORDERED: DIPHENHYDRAMINE 25 MG in SODIUM CHLORIDE 50 ML IVPB ONE (09:30)
[2021-07-26] MEDS ORDERED: ACETAMINOPHEN 325 MG TABLET (FP) PO ONE (09:30)
[2021-07-26] MEDS ORDERED: IMMUN GLOB G(IGG)/PRO/IGA 0-50 200 ML, IMMUN GLOB G(IGG)/PRO/IGA 0-50 50 ML IVPB ONE (10:00)
[2021-07-26 12:43] LABS: BASO % 0.6 % (0-2.0); EOS % 1.1 % (0-4.5); HEMATOCRIT 35.6 % (32.4-45.2); LYMPH % 19.8 % (8-40); MCH 28.3 pg (25.7-33.7); MCHC 33.7 g/dl (32.0-36.0); MEAN CELL VOLUME 83.8 fl (80-96); MEAN PLT VOLUME 8.9 fl (7.5-11.1); MONO % 6.4 % (3.8-10.2); NEUT % 72.1 % (42.8-82.8); PLATELET COUNT 270 10^3/uL (134-434); RBC 4.25 M/mm3 (3.60-5.2); RDW 13.5 % (11.6-15.6); WHITE BLOOD COUNT 7.5 K/mm3 (4.0-10.0)
[2021-07-26 13:04] LABS: ALBUMIN 3.1 g/dl (3.4-5.0); CALCIUM 9.1 mg/dL (8.5-10.1)
[2021-07-26 13:06] LABS: MAGNESIUM 2.2 mg/dL (1.8-2.4)
[2021-07-26 13:07] LABS: BILIRUBIN,DIRECT 0.2 mg/dL (0.0-0.2); CREATININE 0.5 mg/dL (0.55-1.3); URIC ACID 3.5 mg/dL (2.6-7.2)
[2021-07-26 13:09] LABS: BILIRUBIN,TOTAL 0.4 mg/dL (0.2-1); TOT PROT 6.7 g/dl (6.4-8.2)
[2021-07-26 18:04] VITALS: TEMP 97.6
[2021-07-26 18:06] VITALS: BP 146/65; PULSE 65
== END 2021-07-26 16:00 | disposition home or self-care (01) ==
LOC: JONCCHEMO 07:41
PROVIDERS: ATTEND Internal Medicine Hematology & Oncology
PROC: 3E043GC Introduction of Other Therapeutic Substance into Central Vein, Percutaneous Approach (ICD-10-PCS; principal; 2021-07-26)
PROC: 3E043GC Introduction of Other Therapeutic Substance into Central Vein, Percutaneous Approach (ICD-10-PCS; 2021-07-26)
DX: D80.1 Nonfamilial hypogammaglobulinemia (principal); C50.112 Malignant neoplasm of central portion of left female breast; C78.89 Secondary malignant neoplasm of other digestive organs; Z17.0 Estrogen receptor positive status [ER+]
CPT/HCPCS: 36415; 80048; 80076; 83615; 83735; 84550; 85025; 96361; 96365; 96366; 96375; J1459

== ENCOUNTER 2021-08-24 08:08 | Day surgery (SDC) | payer OTHER, MEDICARE ==
[2021-08-24] MEDS ORDERED: SODIUM CHLORIDE 250 ML IV ONE (09:00)
[2021-08-24] MEDS ORDERED: DIPHENHYDRAMINE 25 MG in SODIUM CHLORIDE 50 ML IVPB ONE (09:30)
[2021-08-24] MEDS ORDERED: ACETAMINOPHEN 325 MG TABLET (FP) PO ONE (09:30)
[2021-08-24] MEDS ORDERED: IMMUN GLOB G(IGG)/PRO/IGA 0-50 200 ML, IMMUN GLOB G(IGG)/PRO/IGA 0-50 50 ML IVPB ONE (10:00)
[2021-08-24 12:42] LABS: BASO % 0.6 % (0-2.0); EOS % 0.8 % (0-4.5); HEMATOCRIT 36.8 % (32.4-45.2); HEMOGLOBIN 12.4 GM/dL (10.7-15.3); LYMPH % 20.7 % (8-40); MCH 28.4 pg (25.7-33.7); MCHC 33.7 g/dl (32.0-36.0); MEAN CELL VOLUME 84.3 fl (80-96); MEAN PLT VOLUME 8.7 fl (7.5-11.1); MONO % 6.9 % (3.8-10.2); PLATELET COUNT 225 10^3/uL (134-434); RBC 4.36 M/mm3 (3.60-5.2); RDW 13.9 % (11.6-15.6); WHITE BLOOD COUNT 6.8 K/mm3 (4.0-10.0)
[2021-08-24 13:03] LABS: CALCIUM 9.6 mg/dL (8.5-10.1)
[2021-08-24 13:04] LABS: ALBUMIN 3.4 g/dl (3.4-5.0); BLOOD UREA NITROGEN 10.7 mg/dL (7-18); MAGNESIUM 2.4 mg/dL (1.8-2.4)
[2021-08-24 13:06] LABS: BILIRUBIN,DIRECT 0.2 mg/dL (0.0-0.2); URIC ACID 3.6 mg/dL (2.6-7.2)
[2021-08-24 13:07] LABS: CREATININE 0.5 mg/dL (0.55-1.3)
[2021-08-24 13:08] LABS: BILIRUBIN,TOTAL 0.4 mg/dL (0.2-1); TOT PROT 6.7 g/dl (6.4-8.2)
[2021-08-24 15:39] VITALS: TEMP 97.9
[2021-08-24 15:42] VITALS: BP 150/74; PULSE 70
[2021-08-26 07:07] LABS: IGA IMMUNOGLOBULIN 122 mg/dL (64-422); IGG QN IMMUNOGLOBULIN 1002 mg/dL (586-1602); IGM QN SERUM 27 mg/dL (26-217)
== END 2021-08-24 15:45 | disposition home or self-care (01) ==
LOC: JONCCHEMO 08:08
PROVIDERS: ATTEND Internal Medicine Hematology & Oncology
PROC: 3E043WK Introduction of Immunostimulator into Central Vein, Percutaneous (ICD-10-PCS; principal; 2021-08-24)
PROC: 3E043GC Introduction of Other Therapeutic Substance into Central Vein, Percutaneous Approach (ICD-10-PCS; 2021-08-24)
DX: D80.1 Nonfamilial hypogammaglobulinemia (principal); C50.112 Malignant neoplasm of central portion of left female breast; C78.89 Secondary malignant neoplasm of other digestive organs; Z17.0 Estrogen receptor positive status [ER+]
CPT/HCPCS: 36415; 80048; 80076; 82378; 82784; 83735; 84550; 85025; 86300; 86301; 87517; 96361; 96365; 96366; 96375; J1459

== ENCOUNTER 2021-09-27 07:23 | Day surgery (SDC) | payer OTHER, MEDICARE ==
[2021-09-27] MEDS ORDERED: SODIUM CHLORIDE 250 ML IV ONE (10:00)
[2021-09-27] MEDS ORDERED: DIPHENHYDRAMINE 25 MG in SODIUM CHLORIDE 50 ML IVPB ONE (10:00)
[2021-09-27] MEDS ORDERED: ACETAMINOPHEN 325 MG TABLET (FP) PO ONE (10:00)
[2021-09-27] MEDS ORDERED: IMMUN GLOB G(IGG)/PRO/IGA 0-50 200 ML, IMMUN GLOB G(IGG)/PRO/IGA 0-50 50 ML IVPB ONE (10:30)
[2021-09-27 12:37] LABS: BASO % 0.2 % (0-2.0); EOS % 0.6 % (0-4.5); HEMATOCRIT 40.1 % (32.4-45.2); LYMPH % 9.9 % (8-40); MCH 27.5 pg (25.7-33.7); MCHC 32.5 g/dl (32.0-36.0); MEAN CELL VOLUME 84.6 fl (80-96); MEAN PLT VOLUME 9.5 fl (7.5-11.1); MONO % 6.9 % (3.8-10.2); NEUT % 82.4 % (42.8-82.8); PLATELET COUNT 195 10^3/uL (134-434); RBC 4.74 M/mm3 (3.60-5.2); RDW 14.3 % (11.6-15.6); WHITE BLOOD COUNT 8.4 K/mm3 (4.0-10.0)
[2021-09-27 12:46] LABS: ALBUMIN 3.8 g/dl (3.4-5.0); BLOOD UREA NITROGEN 11.9 mg/dL (7-18); CALCIUM 9.3 mg/dL (8.5-10.1)
[2021-09-27 12:47] LABS: MAGNESIUM 2.2 mg/dL (1.8-2.4)
[2021-09-27 12:49] LABS: BILIRUBIN,DIRECT 0.1 mg/dL (0.0-0.2); CREATININE 0.6 mg/dL (0.55-1.3); URIC ACID 3.6 mg/dL (2.6-7.2)
[2021-09-27 12:51] LABS: BILIRUBIN,TOTAL 0.7 mg/dL (0.2-1); TOT PROT 6.9 g/dl (6.4-8.2)
[2021-09-27] MEDS ORDERED: PORTA CATH FLUSH 10 ML IVPUSH ONE (16:48)
[2021-09-27 16:49] VITALS: BP 135/58; PULSE 89
[2021-09-27 16:51] VITALS: TEMP 98.9
[2021-09-28 08:11] LABS: IGA IMMUNOGLOBULIN 121 mg/dL (64-422); IGG QN IMMUNOGLOBULIN 1034 mg/dL (586-1602); IGM QN SERUM 27 mg/dL (26-217)
== END 2021-09-27 15:45 | disposition home or self-care (01) ==
LOC: JONCCHEMO 07:23
PROVIDERS: ATTEND Internal Medicine Hematology & Oncology
PROC: 3E043GC Introduction of Other Therapeutic Substance into Central Vein, Percutaneous Approach (ICD-10-PCS; principal; 2021-09-27)
DX: D80.1 Nonfamilial hypogammaglobulinemia (principal)
CPT/HCPCS: 36415; 80048; 80076; 82378; 82784; 83615; 83735; 84550; 85025; 86300; 86301; 96365; 96366; 96375; J1459

== ENCOUNTER 2021-10-25 08:15 | Day surgery (SDC) | payer OTHER, MEDICARE ==
[2021-10-25] MEDS ORDERED: SODIUM CHLORIDE 250 ML IV ONE (10:00)
[2021-10-25] MEDS ORDERED: DIPHENHYDRAMINE 25 MG in SODIUM CHLORIDE 50 ML IVPB ONE (10:30)
[2021-10-25] MEDS ORDERED: ACETAMINOPHEN 325 MG TABLET (FP) PO ONE (10:30)
[2021-10-25] MEDS ORDERED: IMMUN GLOB G(IGG)/PRO/IGA 0-50 200 ML, IMMUN GLOB G(IGG)/PRO/IGA 0-50 50 ML IVPB ONE (11:00)
[2021-10-25 11:10] LABS: BASO % 0.5 % (0-2.0); EOS % 1.4 % (0-4.5); HEMATOCRIT 38.1 % (32.4-45.2); HEMOGLOBIN 12.7 GM/dL (10.7-15.3); LYMPH % 18.5 % (8-40); MCHC 33.2 g/dl (32.0-36.0); MEAN CELL VOLUME 84.2 fl (80-96); MEAN PLT VOLUME 8.6 fl (7.5-11.1); MONO % 5.6 % (3.8-10.2); PLATELET COUNT 210 10^3/uL (134-434); RBC 4.53 M/mm3 (3.60-5.2); RDW 14.2 % (11.6-15.6); WHITE BLOOD COUNT 7.1 K/mm3 (4.0-10.0)
[2021-10-25 11:26] LABS: CALCIUM 9.1 mg/dL (8.5-10.1); MAGNESIUM 2.2 mg/dL (1.8-2.4)
[2021-10-25 11:27] LABS: ALBUMIN 3.5 g/dl (3.4-5.0); BLOOD UREA NITROGEN 14.4 mg/dL (7-18)
[2021-10-25 11:29] LABS: BILIRUBIN,DIRECT 0.1 mg/dL (0.0-0.2); CREATININE 0.6 mg/dL (0.55-1.3); URIC ACID 4.1 mg/dL (2.6-7.2)
[2021-10-25 11:31] LABS: TOT PROT 6.5 g/dl (6.4-8.2)
[2021-10-25 11:32] LABS: BILIRUBIN,TOTAL 0.4 mg/dL (0.2-1)
[2021-10-25 16:42] VITALS: BP 144/65; PULSE 63; TEMP 97.6
[2021-10-26 08:06] LABS: IGA IMMUNOGLOBULIN 125 mg/dL (64-422); IGG QN IMMUNOGLOBULIN 1039 mg/dL (586-1602); IGM QN SERUM 28 mg/dL (26-217)
== END 2021-10-25 16:00 | disposition home or self-care (01) ==
LOC: JONCCHEMO 08:15
PROVIDERS: ATTEND Internal Medicine Hematology & Oncology
PROC: 3E043GC Introduction of Other Therapeutic Substance into Central Vein, Percutaneous Approach (ICD-10-PCS; principal; 2021-10-25)
PROC: 3E0437Z Introduction of Electrolytic and Water Balance Substance into Central Vein, Percutaneous Approach (ICD-10-PCS; 2021-10-25)
DX: D80.1 Nonfamilial hypogammaglobulinemia (principal); C91.10 Chronic lymphocytic leukemia of B-cell type not having achieved remission; C50.112 Malignant neoplasm of central portion of left female breast; Z17.0 Estrogen receptor positive status [ER+]; C22.1 Intrahepatic bile duct carcinoma
CPT/HCPCS: 36415; 80048; 80076; 82378; 82784; 83615; 83735; 84550; 85025; 86300; 86301; 96361; 96365; 96366; J1459